=== PATIENT | male | born 1950 | race Caucasian/White ===

== ENCOUNTER → 2021-07-05 05:54 | Outpatient (CLI) | payer MEDICARE, OTHER, SELFPAY ==
[2021-07-05 19:19] LABS: SARS-CoV-2 RNA PCR Positive
== END ==
PROVIDERS: PCP Family Medicine; Visit Provider Nurse Practitioner Family
DX: U07.1 COVID-19 (principal)
CPT/HCPCS: C9803; U0003; U0005

== ENCOUNTER 2021-09-11 11:04 | Outpatient (CLI) | payer MEDICARE, OTHER, SELFPAY ==
[2021-09-11 12:00] LABS: Vitamin D 25 Hydroxy 23.6 ng/mL
[2021-09-16 17:02] LABS: Testosterone Free 42.6 pg/mL (35.0-155.0); Testosterone Total 179 ng/dL (250-1100)
== END 2021-09-11 11:05 | disposition home or self-care (01) ==
PROVIDERS: PCP Family Medicine; Visit Provider Physician Assistant Medical
DX: E55.9 Vitamin D deficiency, unspecified (principal); E11.29 Type 2 diabetes mellitus with other diabetic kidney complication; R80.9 Proteinuria, unspecified; R79.89 Other specified abnormal findings of blood chemistry
CPT/HCPCS: 36415; 82306; 84402; 84403; 84443

== ENCOUNTER 2022-01-28 14:54 | Outpatient (CLI) | payer MEDICARE, OTHER, SELFPAY ==
--- NOTE | 2022-01-28 | ECG_ITS ---
Measurements Intervals [place] Rate: 79 P: 35 MN: 157 QRS: 54 QRSD: 100 T: 74 QT: 381 QTc: 438 Interpretive Statements SINUS RHYTHM NONSPECIFIC T-WAVE ABNORMALITY BORDERLINE ECG NO PREVIOUS ECG AVAILABLE FOR COMPARISON Electronically Signed On 01-28-2022 16:58:46 CDT by Warren Flores M.D.
[2022-01-28 15:33] LABS: Hematocrit 46.6 % (42.0-52.0); Hemoglobin 14.9 g/dL (14.0-18.0); Mean Corpuscular Volume 87.4 fl (80-100); Mean Platelet Volume 9.2 fl (7.4-10.4); Platelet Count Result 235 k/mm3 (150-375); Red Blood Count 5.33 M/mm3 (4.6-6.20); Red Cell Distribution Width 14.5 % (11.5-14.5); White Blood Count 7.2 K/mm3 (4.5-10.0)
[2022-01-28 15:41] LABS: Alanine Aminotransferase 28 U/L (4-50); Albumin Level 4.5 g/dL (3.5-5.1); Alkaline Phosphatase 71 U/L (38-126); Anion Gap 10 mmol/L (8-16); Aspartate Amino Transferase 29 U/L (17-59); Bilirubin,Total 0.4 mg/dL (0.2-1.3); Blood Urea Nitrogen 20 mg/dL (9-20); Calcium 9.4 mg/dL (8.4-10.2); Carbon Dioxide 27 mmol/L (22-30); Chloride 101 mmol/L (98-107); Cholesterol 198 mg/dL (0-200); Estimated Glomerular Filt Rate > 60; Glucose 112 mg/dL (65-110); HDL Direct 46 mg/dL; Potassium 3.9 mmol/L (3.4-5.0); Sodium 138 mmol/L (137-145); Triglycerides 392 mg/dL (<150)
[2022-01-28 15:52] LABS: LDL Cholesterol Direct 88 mg/dL
[2022-01-28 16:05] LABS: Creatinine Urine 84.3 mg/dL
[2022-01-28 16:10] LABS: Prostate Specific Antigen 1.1 ng/mL (< OR = 4.0)
[2022-01-28 16:11] LABS: MALB Creatinine Ratio 179.8 mg/g (0-30); Microalbumin Urine Random 151.6 mg/L (0-16.7)
[2022-01-28 16:22] LABS: Vitamin D 25 Hydroxy 30.7 ng/mL
== END 2022-01-28 14:55 | disposition home or self-care (01) ==
PROVIDERS: PCP Family Medicine; Referring Provider Orthopaedic Surgery Hand Surgery; Visit Provider Physician Assistant Medical
DX: E78.5 Hyperlipidemia, unspecified (principal); M79.641 Pain in right hand; I10 Essential (primary) hypertension; E11.9 Type 2 diabetes mellitus without complications; E55.9 Vitamin D deficiency, unspecified; Z12.5 Encounter for screening for malignant neoplasm of prostate
CPT/HCPCS: 36415; 80053; 80061; 82043; 82306; 84153; 85027; 93005; G0103

== ENCOUNTER 2023-05-01 08:16 | Outpatient (CLI) | payer MEDICARE, OTHER, SELFPAY ==
[2023-05-01 09:22] LABS: Basophils Percent Auto 0.4 % (0.2-1.2); Eosinophils Absolute Auto 0.2 K/mm3 (0-0.3); Hematocrit 47.8 % (42.0-52.0); Hemoglobin 15.1 g/dL (14.0-18.0); Immature Granulocyte Absolute 0.03 K/mm3 (0.00-0.031); Immature Granulocyte Percent A 0.4 % (0-0.5); Lymphocytes Absolute Auto 1.63 K/mm3 (0.9-3.2); Lymphocytes Percent Auto 23.5 % (18.3-44.2); Mean Corpuscular HGB Conc 31.6 g/dl (32-36); Mean Corpuscular Hemoglobin 27.6 pg (26-34); Mean Corpuscular Volume 87.4 fl (80-100); Mean Platelet Volume 9.6 fl (7.4-10.4); Monocytes Absolute Auto 0.6 K/mm3 (0.1-0.6); Monocytes Percent Auto 8.5 % (2.6-8.5); Neutrophils Absolute Auto 4.4 K/mm3 (1.3-6.7); Neutrophils Percent Auto 64.2 % (45.5-73.1); Platelet Count Result 254 k/mm3 (150-375); Red Blood Count 5.47 M/mm3 (4.6-6.20); Red Cell Distribution Width 14.4 % (11.5-14.5); White Blood Count 6.9 K/mm3 (4.5-10.0)
[2023-05-01 09:31] LABS: Alanine Aminotransferase 36 U/L (6-50); Albumin Level 4.6 g/dL (3.5-5.1); Alkaline Phosphatase 60 U/L (38-126); Anion Gap 7 mmol/L (8-16); Aspartate Amino Transferase 36 U/L (17-59); Bilirubin,Total 0.4 mg/dL (0.2-1.3); Blood Urea Nitrogen 20 mg/dL (9-20); Calcium 9.6 mg/dL (8.4-10.2); Carbon Dioxide 31 mmol/L (22-30); Chloride 102 mmol/L (98-107); Cholesterol 147 mg/dL (0-200); Estimated Glomerular Filt Rate > 60; Glucose 128 mg/dL (65-110); HDL Direct 39 mg/dL; Potassium 4.5 mmol/L (3.4-5.0); Sodium 140 mmol/L (137-145); Triglycerides 219 mg/dL (<150)
[2023-05-01 09:42] LABS: LDL Cholesterol Direct 71 mg/dL
[2023-05-01 09:43] LABS: Creatinine Urine 77.2 mg/dL
[2023-05-01 09:47] LABS: MALB Creatinine Ratio 139.4 mg/g (0-30); Microalbumin Urine Random 107.6 mg/L (0-16.7)
[2023-05-01 10:01] LABS: Prostate Specific Antigen 1.2 ng/mL (< OR = 4.0)
== END 2023-05-01 08:17 | disposition home or self-care (01) ==
PROVIDERS: PCP Family Medicine; Visit Provider Physician Assistant Medical
DX: Z12.5 Encounter for screening for malignant neoplasm of prostate (principal); R80.9 Proteinuria, unspecified; I10 Essential (primary) hypertension; E78.5 Hyperlipidemia, unspecified; E11.29 Type 2 diabetes mellitus with other diabetic kidney complication
CPT/HCPCS: 36415; 80053; 80061; 82043; 84153; 85025; G0103

== ENCOUNTER 2024-01-27 10:03 | Outpatient (CLI) | payer MEDICARE, OTHER, SELFPAY ==
[2024-01-27 10:26] LABS: Hemoglobin 14.8 g/dL (14.0-18.0); Mean Corpuscular HGB Conc 32.2 g/dl (32-36); Mean Corpuscular Hemoglobin 27.9 pg (26-34); Mean Corpuscular Volume 86.6 fl (80-100); Mean Platelet Volume 9.1 fl (7.4-10.4); Platelet Count Result 223 k/mm3 (150-375); Red Blood Count 5.31 M/mm3 (4.6-6.20); Red Cell Distribution Width 14.4 % (11.5-14.5); White Blood Count 7.9 K/mm3 (4.5-10.0)
[2024-01-27 10:38] LABS: Alanine Aminotransferase 26 U/L (6-50); Albumin Level 4.3 g/dL (3.5-5.1); Alkaline Phosphatase 68 U/L (38-126); Anion Gap 9 mmol/L (4-12); Aspartate Amino Transferase 24 U/L (17-59); Bilirubin,Total 0.6 mg/dL (0.2-1.3); Blood Urea Nitrogen 25 mg/dL (9-20); Calcium 9.9 mg/dL (8.4-10.2); Carbon Dioxide 26 mmol/L (22-30); Chloride 102 mmol/L (98-107); Estimated Glomerular Filt Rate > 60; Glucose 147 mg/dL (65-110); Potassium 4.1 mmol/L (3.4-5.0); Sodium 137 mmol/L (137-145)
[2024-01-27 11:07] LABS: Creatinine Urine 77.1 mg/dL
[2024-01-27 11:10] LABS: Prostate Specific Antigen 1.3 ng/mL (< OR = 4.0)
[2024-01-27 11:11] LABS: MALB Creatinine Ratio 159.4 mg/g (0-30); Microalbumin Urine Random 122.9 mg/L (0-16.7)
== END 2024-01-27 10:04 | disposition home or self-care (01) ==
PROVIDERS: PCP Family Medicine; Visit Provider Nurse Practitioner Family
DX: Z12.5 Encounter for screening for malignant neoplasm of prostate (principal); R63.5 Abnormal weight gain; Z68.34 Body mass index [BMI] 34.0-34.9, adult; E11.9 Type 2 diabetes mellitus without complications; R79.89 Other specified abnormal findings of blood chemistry
CPT/HCPCS: 36415; 80053; 82043; 84153; 84443; 85027; G0103

== ENCOUNTER 2024-08-03 13:07 | Emergency (ER) | payer MEDICARE, OTHER, SELFPAY ==
[2024-08-03] VITALS (13 sets, daily range): BP systolic 114–147; BP diastolic 72–81; PULSE 65–128; RESP 12–32; TEMP 36.6; O2SAT 94–99
--- NOTE | ~2024-08-03 | XR_ITS ---
EXAMINATION: XR chest 2V DATE: 08/03/2024 14:04 INDICATION: Cardiac arrhythmia TECHNIQUE: PA and lateral views of the chest were obtained. COMPARISON: Chest radiograph dated 10/15/2015 FINDINGS: The lungs remain clear with no focal airspace opacities, pulmonary edema, pleural effusion or pneumot horax. Heart size is normal. Calcified left hilar lymph nodes consistent with old granulomatous disea se. Mild thoracic spondylosis with bridging osteophytes at multiple levels consistent with diffuse i diopathic skeletal hyperostosis (DISH). IMPRESSION: 1. No acute cardiopulmonary disease. Reviewed, dictated and finalized at location A.
--- NOTE | 2024-08-03 13:08 | ECG_ITS ---
Test Date: 2024-08-03 13:12:10 Measurements Intervals [place] Rate: 91 P: 48 ME: 152 QRS: 35 QRSD: 102 T: 103 QT: 351 QTc: 433 Interpretive Statements SINUS RHYTHM WITH OCCASIONAL SUPRAVENTRICULAR PREMATURE COMPLEXES IN A BIGEMINAL PATTERN POSSIBLE ANTERIOR MYOCARDIAL INFARCTION , OF INDETERMINATE AGE [30 ms Q WAVE IN V3/V4, OR R < 0.2 mV IN V4] No previous ECG available for comparison Electronically Signed On 08-03-2024 13:22:24 CDT by Stuart Rodrigues M.D.
[2024-08-03 13:31] LABS: Basophils Percent Auto 0.5 % (0.2-1.2); Eosinophils Absolute Auto 0.2 K/mm3 (0-0.3); Eosinophils Percent Auto 2.6 % (0-4.4); Hematocrit 47.7 % (42.0-52.0); Hemoglobin 15.7 g/dL (14.0-18.0); Immature Granulocyte Absolute 0.05 K/mm3 (0.00-0.031); Immature Granulocyte Percent A 0.7 % (0-0.5); Lymphocytes Absolute Auto 2.07 K/mm3 (0.9-3.2); Lymphocytes Percent Auto 28.4 % (18.3-44.2); Mean Corpuscular HGB Conc 32.9 g/dl (32-36); Mean Corpuscular Hemoglobin 28.9 pg (26-34); Mean Corpuscular Volume 87.7 fl (80-100); Mean Platelet Volume 9.2 fl (7.4-10.4); Monocytes Absolute Auto 0.6 K/mm3 (0.1-0.6); Monocytes Percent Auto 7.8 % (2.6-8.5); Neutrophils Absolute Auto 4.4 K/mm3 (1.3-6.7); Platelet Count Result 237 k/mm3 (150-375); Red Blood Count 5.44 M/mm3 (4.6-6.20); Red Cell Distribution Width 14.1 % (11.5-14.5); White Blood Count 7.3 K/mm3 (4.5-10.0)
[2024-08-03 13:37] LABS: Alanine Aminotransferase 31 U/L (6-50); Albumin Level 4.9 g/dL (3.5-5.1); Alkaline Phosphatase 71 U/L (38-126); Anion Gap 15 mmol/L (4-12); Aspartate Amino Transferase 30 U/L (17-59); Bilirubin,Total 0.5 mg/dL (0.2-1.3); Blood Urea Nitrogen 16 mg/dL (9-20); Calcium 9.6 mg/dL (8.4-10.2); Carbon Dioxide 24 mmol/L (22-30); Chloride 100 mmol/L (98-107); Estimated CRCL calculation 74 ml/min; Estimated Glomerular Filt Rate > 60; Glucose 119 mg/dL (65-110); Lipase 67 U/L (23-300); Potassium 3.9 mmol/L (3.4-5.0); Sodium 139 mmol/L (137-145)
[2024-08-03 13:41] LABS: Prothrombin Time 13.4 Seconds (11.1-14.7)
[2024-08-03 13:42] LABS: Partial Thromboplastin Time 35.7 Seconds (22.3-36.8)
[2024-08-03 13:49] LABS: Troponin I < 0.012 ng/mL (0.000-0.034)
--- NOTE | 2024-08-03 17:03 | ECG_ITS ---
Test Date: 2024-08-03 17:05:26 Measurements Intervals [place] Rate: 83 P: 35 AL: 167 QRS: 9 QRSD: 97 T: 81 QT: 363 QTc: 427 Interpretive Statements SINUS RHYTHM WITH SINUS ARRHYTHMIA POSSIBLE ANTERIOR MYOCARDIAL INFARCTION , PROBABLY OLD [30 ms Q WAVE IN V3/V4, OR R < 0.2 mV IN V4] INFERIOR MYOCARDIAL INFARCTION , PROBABLY OLD [40+ ms Q WAVE AND/OR ST/T ABNORMALITY IN II/aVF] ABNORMAL ECG Compared to ECG 08/03/2024 13:12:10 No significant changes Electronically Signed On 08-04-2024 13:48:07 CDT by Thanh Pringle M.D.
[2024-08-03 17:36] LABS: Troponin I < 0.012 ng/mL (0.000-0.034)
--- NOTE | 2024-08-03 17:37 | ED.GENADULT ---
HPI - General Adult General Chief complaint: Chest Pain Stated complaint: palpitations Time Seen by Provider: 08/03/24 16:47 History of Present Illness HPI narrative: This is a 73-year-old male presenting ED with chief complaint of palpitations. Started 1:00 a.m. last night he developed palpitations that were 2 beats 1 after another and then a pause. Patient has a history of PACs and PVCs below last 35 years. This is a similar episode. He is on metoprolol. He is not having any chest pain difficulty breathing abdominal pain lower extremity edema or syncope. He has appointment see his dado operator tomorrow at 2:30 a.m. Patient has had a Holter monitor in the past. Related Data Home Medications Medication Instructions Recorded Confirmed rosuvastatin 20 mg tablet (Crestor) 20 mg PO DAILY 06/02/23 05/19/24 Allergies Allergy/AdvReac Type Severity Reaction Status Date / Time No Known Allergies Allergy Verified 08/03/24 16:25 [facility] Past Medical History Medical History BMI 32.0-32.9,adult BMI 33.0-33.9,adult BMI 34.0-34.9,adult BMI 35.0-35.9,adult COVID-19 Surgical History Surgical History H/O colonoscopy History of thumb surgery Family History Family History Mother Carcinoma of colon Alcohol abuse Tobacco abuse Father Malignant neoplasm of prostate Acute myocardial infarction Heart disease Tobacco abuse Alcohol abuse Sibling Acute myocardial infarction Alcohol abuse Tobacco abuse Sibling Acute myocardial infarction Alcohol abuse Cerebrovascular accident Tobacco abuse Other Hypertension Social History Social History Smoking status: Never smoker Second hand tobacco smoke exposure: Yes Alcohol intake: never Substance use: former Substance use type: does not use and marijuana Lack of Transportation: No Lack of Food: Never True Current Housing: I Have Housing Concerned About Future Housing: No Difficulty Paying Gas/Electric Bills: No Difficulty Paying for Meds: No Currently Unemployed: No Education: Master's Degree or Higher Difficulty w/ Childcare or Family Care: No Living arrangements: with family Occupation/Education: retired 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 Head: atraumatic. EYES: EOMI, NOSE: Atraumatic NECK: Trachea midline RESPIRATORY: No increased rate of breathing clear to auscultation CARDIOVASCULAR: irregular, no peripheral edema ABDOMINAL: Non-distended, soft nontender no guarding rebound MUSCULOSKELETAl: No obvious deformities NEURO: Alert. Moving 4/4 extremities SKIN:: Warm, dry. Normal color PSYCHIATRIC: Normal affect Course Vital Signs Vital signs: Vital Signs Temperature 97.8 F 08/03/24 13:11 Pulse Rate 90 08/03/24 13:11 Respiratory Rate 16 08/03/24 13:11 Blood Pressure 147/81 H 08/03/24 13:11 Pulse Oximetry 99 08/03/24 13:11 Oxygen Delivery Room Air 08/03/24 13:11 Temperature 97.8 F 08/03/24 13:11 Pulse Rate 86 08/03/24 17:00 Respiratory Rate 16 08/03/24 16:24 Blood Pressure 131/80 08/03/24 16:24 Pulse Oximetry 96 08/03/24 16:24 Oxygen Delivery Room Air 08/03/24 13:11 Medical Decision Making MDM Narrative Medical decision making narrative: -Course: 73-year-old male with history of PACs presenting with palpitations. EKG showed PACs in a bigeminal pattern. No chest pain. No ischemic findings an EKG. Laboratory studies within normal limits. Troponin negative. Patient has follow-up with his dado operator tomorrow at 2:30 a.m.. Patient will be discharged. -DDX includes but is not limited
== END 2024-08-03 18:16 | disposition home or self-care (01) ==
PROVIDERS: Emergency Provider Emergency Medicine; PCP Family Medicine
DX: R00.8 Other abnormalities of heart beat (principal); Z79.85 Long-term (current) use of injectable non-insulin antidiabetic drugs; Z79.84 Long term (current) use of oral hypoglycemic drugs
CPT/HCPCS: 36415; 71046; 80053; 83690; 84484; 85025; 85610; 85730; 93005; 99284

== ENCOUNTER 2024-08-04 15:38 | Outpatient (CLI) | payer MEDICARE, OTHER, SELFPAY | END 2024-08-04 15:39 | disposition home or self-care (01) | LOC: ANHLAB 15:51 | PROVIDERS: PCP Family Medicine; Visit Provider Internal Medicine Cardiovascular Disease | DX: R00.2 Palpitations (principal) | CPT/HCPCS: 36415; 84481; 86376 ==

== ENCOUNTER 2024-09-08 15:15 | Outpatient (CLI) | payer MEDICARE, OTHER, SELFPAY ==
[2024-09-10 08:28] LABS: TSH QUEST 1.11 mIU/L (0.40-4.50)
== END 2024-09-08 15:16 | disposition home or self-care (01) ==
PROVIDERS: PCP Family Medicine; Visit Provider Internal Medicine Cardiovascular Disease
DX: R00.2 Palpitations (principal)
CPT/HCPCS: 36415; 84439; 84443; 84481; 86376

== ENCOUNTER 2024-11-09 07:52 | Outpatient (CLI) | payer MEDICARE, OTHER, SELFPAY ==
--- NOTE | ~2024-11-09 | MR_ITS ---
MR brain/brain stem wo/w con Ordering provider: DEDRA Warren History: 74 years Male with . H53.131 - Sudden visual loss, right eye . Comparison: CT head performed yesterday. Technique: MRI brain was performed without contrast. 20 mL MultiHance was given IV. FINDINGS: BONES: Normal. CRANIOCERVICAL JUNCTION: normal. PITUITARY: Normal. MAJOR INTRACRANIAL VESSELS: Normal flow void. Dominant right vertebral artery. OPTIC NERVES AND CRANIAL NERVES VII AND VIII COMPLEXES: Grossly normal. BRAIN PARENCHYMA AND CSF SPACES: Scattered T2 and FLAIR hyperintense signal areas suggestive of deep white matter ischemic changes. The brainstem and cerebellum are normal. No acute or chronic intr acranial hemorrhage. No extra axial fluid collections. Diffusion weighted and ADC mapping images reve al no recent ischemia. No midline shift or mass effect. No enhancing lesions seen. PARANASAL SINUSES: Right maxillary sinus disease. Bilateral ethmoid sinus disease. Right sphenoid sin us disease. MASTOIDS: Normal SUPERFICIAL/SURROUNDING SOFT TISSUES: Normal. IMPRESSION: 1. No acute intracranial process. 2. Scattered T2 and FLAIR hyperintense signal areas suggestive of the deep white matter ischemic dandy nges. 3. Pansinusitis. Reviewed, dictated and finalized at location A. 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 No acute intracranial process. 2. Scattered T2 and FLAIR hyperintense signal areas suggestive of the deep whi te matter ischemic changes. 3. Pansinusitis.
== END 2024-11-09 07:53 | disposition home or self-care (01) ==
PROVIDERS: PCP Family Medicine; Visit Provider Physician Assistant Medical
DX: R93.0 Abnormal findings on diagnostic imaging of skull and head, not elsewhere classified (principal); J32.4 Chronic pansinusitis; H53.131 Sudden visual loss, right eye
CPT/HCPCS: 70553; A9577

== ENCOUNTER 2025-07-18 09:34 | Outpatient (CLI) | payer MEDICARE, OTHER, SELFPAY ==
--- OUTSIDE RECORDS SUMMARY | 2018-04-07 07:24 | XMS_ITS | Continuity of Care Document ---
Author Organization [facility] Address [address] [place] [address] Phone Care Team Providers Care Vehicle Modification Technician Name Role Phone Delaney Mckeon MD Unavailable Unavailable Allergies, Adverse Reactions, Alerts Substance Reaction Status Criticality POTASSIUM CHLORIDE Drug Fever Active No Inform ation Medications Medication Instructions Dosage Effective Dates (start - stop) Status Comments metformin 500 mg tablet take 1 tablet by oral route once every day with morning meal - Active ONE TOUCH ULTRA TEST STRIPS CHECK GLUCOSE TWICE DAILY - FASTING AND 2 HOURS AFTER LARGEST MEAL AND NEEDED - Active One Touch Delica Lancets 33 gauge Use to test blood sugar 3-4 times/day - Active SIMVASTATIN 20 MG TABLET 1 QHS - Active aspirin 325 mg tablet take 1 tablet by oral route every day 325 MG - Active losartan 50 mg-hydrochlorothiazi de 12.5 mg tablet take 1 tablet by oral route every day 1.00 tablet - Active metoprolol tartrate 100 mg tablet take 1 tablet by oral route 2 times every day with meals 100 MG - Active Advance Directives Directive Yes / No Effective Date File Name No Information Encounters Encounter Description Practice Location Reason(s) For Visit Diagnoses Date Provider Providers Copied on Encounter [facility], [address], [place], [place], [address] , [place] tel: [phone] [place] No Information 8 Mike Baltazar. [address] [facility] [address], [place], [place], [address], [place]. tel:[phone] [facility], [address], [place], [place], [address] , [place] tel: [phone] [place] No Information Jan-0 9 8 Mike Baltazar. [address] [place] [address], [address], [place], [place], [address], [place]. tel:[phone] [facility], [address], [place], [place], [address] , [place] tel: [phone] [place] Type 2 diabetes mellitus without complicationsEss ential (primary) hypertensionHype rlipidemia, unspecifiedGastr oesophageal reflux disease without esophagitisMorbi d obesity, unspecified obesity typeMicroalbumin uriaBenign positional vertigo, unspecified lateralityHistor y of adenomatous polyp of colonAbsent kidney, acquired Jan- 6 7 Mike Baltazar. [address] [place] [address], [facility] [address], [place], [place], [address], . tel:[phone] Referring Provider: Delaney Mckeon, [address] [place] [address], [place], [address] . tel:[phone] [facility], [address], [place], [place], [address] , [place] tel: [phone] [place] Suprapubic pressureType 2 diabetes mellitus without complicationsChr onic low back pain, unspecified back pain laterality, with sciatica presence unspecified 2 0-201 6 Hobbs Karin. [address] [place] [address], [facility] [address], [place], [place], [address], [place]. tel:[phone] Referring Provider: Delaney Mckeon, [address] [place] [address] [address], [place], [address] . tel:[phone] [facility], [address], [place], [address] , [place] tel: [phone] [place] Hematuria Federico-0 8-201 6 Hobbs Karin. [address] [place] [address], [facility] [address], [place], [place], [address], . tel:[phone] Referring Provider: Delaney Mckeon, [address] [place] [address], [place], [address] . tel:[phone] [facility], [address], [place], [place], [address] , [place] tel:[phone] [place] Type 2 diabetes mellitus without complicationsEss ential (primary) hypertensionHype rlipidemia, unspecifiedGastr oesophageal reflux disease without esophagitisAdult general medical examUrinary frequencyMorbid obesity, unspecified obesity typeAcute prostatitis 6 Anjel Frazier. [facility], [facility] [address], [place], [place], [address], [place]. tel:[phone] Referring Provider: Delaney Mckeon, [address] [place] [address], [place], [address] . tel:[phone] [facility], [address], [place], [place], [address] , tel:[phone] [place] Other hyperlipidemiaEs sential (primary) hypertensionType 2 diabetes mellitus without complicationsEnc ounter for screening for malignant neoplasm of prostate 6 Mike Baltazar. [facility] [place], [place] [address], [place], [place], [address], [place]. tel:[phone] Referring Provider: Delaney Mckeon, [address] [place] [address], [place], [address] . tel:[phone] [facility], [address], [place], [place], [address] , tel:[phone] [place] No Information 4 Anjel Frazier. [facility], [facility] [address], [place], [address], [place]. tel:[phone] [facility], [address], [place], [address] , [place] tel:[phone] [place] Diabetes Mellitus Type 2, UncomplicatedHyp ertension, BenignOther and unspecified hyperlipidemia 3 Anjel Frazier. [facility], [facility] [address], [place], [place], [address], [place]. tel:[phone] Referring Provider: Delaney Mckeon, [address] [place] [address] [address], [place], [address] . tel:[phone] [facility], [address], [place], [place], [address] , tel: [phone] [place] Other and unspecified hyperlipidemiaDi abetes Mellitus Type 2, Uncomplicated Aug- 3 Mike Baltazar. [address] [place] [address], [facility] [address], [place], [address] [place] [address], . tel:[phone] Referring Provider: Delaney Mckeon, [address] [place] [address] [address], [place], [address] . tel:[phone] [facility], [address], [place], [place], [address] , tel: [phone] [place] No Information 3 Mike Baltazar. [address] [place] [address], [facility] [address], [place], [address] [place] [address], . tel:[phone] [facility], [address], [place], [place], [address] , tel: [phone] [place] Diabetes mellitus without mention of complication, type II or unspecified type, not stated as uncontrolled 3 Anjel Karin. [address] [place] [address], [facility] [address], [place], [place], [address], . tel:[phone] Referring Provider: Delaney Mckeon, [address] [place] [address], [place], [address] . tel:[phone] [facility], [address], [place], [address] , [place] tel: [phone] [place] No Information 3 Hobbs Karin. [address] [place] [address], [facility] [address], [place], [place], [address], . tel:[phone] [facility], [address], [place], [place], [address] , tel: [phone] [place] Diabetes mellitus without mention of complication, type II or unspecified type, not stated as uncontrolledBeni gn essential hypertensionDiab etes mellitus without mention of complication, type II or unspecified type, not stated as uncontrolledBeni gn essential hypertension 3 Jairon Cosme. [address] [place], [place] [address], [place], [place], [address]. tel:[phone] Referring Provider: Carmelina De La O, [address] [facility] 107, [place], [address] . tel:[phone] [facility], [address], [place], [address] , [place] tel: [phone] [place] Benign essential hypertensionOthe r and unspecified hyperlipidemiaSc reening for malignant neoplasms of the prostateDM w/o complication type II, uncontrolled 3 Anjel Frazier. [address] [place] [address], [facility] [address], [place], [place], [address], [place]. tel:[phone] Referring Provider: Delaney Mckeon, [address] [place] [address], [place], [address] . tel:[phone] [facility], [address], [place], [place], [address] , [place] tel: [phone] [place] SPECIAL SCREENING FOR MALIGNANT NEOPLASMS, OTHER SITES 3 Yanni Villagomez. [address] [place] [address], [address], [place], [address], [place]. tel:[phone] [facility], [address], [place], [address] , [place] tel: [phone] [place] No Information 2 Mayank Guallpa. [address] [place] [address], [address], [place], [place], [address], [place]. tel:[phone] [facility], [address], [place], [address] , [place] tel: [phone] [place] DMII WO CMP NT ST UNCNTRHYPERLIPID EMIA NEC/NOS 1 Mayank Guallpa. [address] [place] [address], [address], [place], [place], [address], [place]. tel:[phone] [facility], [address], [place], [place], [address] , [place] tel: [phone] [place] LUMBAGO Fe 1 Mike Baltazar. [address] [place] [address], [address], [place], [place], [address], [place]. tel:[phone] [facility], [address], [place], [place], [address] , [place] tel: [phone] [place] HYPERTENSION NOS 8201 0 Mayank Guallpa. [address] [place] [address], [address], [place], [place], [address], [place]. tel:[phone] [place] [address], [address], [place], [address] , [place] tel: [phone] [place] ABDMNAL PAIN UNSPCF SITE 0 Mayank Guallpa. [address] [place] [address], [place] [address], [place], [place], [address], [place]. tel:[phone] [place] [address], [address], [place], [place], [address] , [place] tel: [phone] [place] CHRONIC LIVER DIS NECANXIETY STATE NOS 0 Mayank Guallpa. [address] [place] [address], [place] [address], [place], [place], [address], [place]. tel:[phone] [place] [address], [address], [place], [place], [address] , [place] tel: [phone] [place] ABN LIVER FUNCTION STUDY 0 Mayank Guallpa. [address] [place] [address], [facility] [address], [place], [place], [address], [place]. tel:[phone] [place] [address], [address], [place], [place], [address] , [place] tel: [phone] [place] BENIGN HYPERTENSION 0 Yanni Soloriofer. [address] [place] [address], [facility] [address], [place], [place], [address], [place]. tel:[phone] [place] [address], [address], [place], [place], [address] , [place] tel:[phone] [place] SCRN MALIG NEOP-PROSTATE May-0 7-201 0 Mayank Guallpa. [address] [place] [address], [place] [address], [place], [place], [address], [place]. tel:[phone] [facility], [address], [place], [place], [address] , [place] tel: [phone] [place] OBESITY NOS 0 3200 9 Mayank Guallpa. [address] [place] [address], [facility] [address], [place], [place], [address], [place]. tel:[phone] [place] [address], [address], [place], [place], [address] , [place] tel: [phone] [place] DMII WO CMP UNCNTRLD 0 3200 9 No Information [facility], [address], [place], [place], [address] , [place] tel: [phone] [place] VACCIN FOR INFLUENZAND VAC STRPTCS PNEUMNI B 3 0200 9 Mayank Guallpa. [address] [place] [address], [place] [address], [place], [place], [address], [place]. tel:[phone] [facility], [address], [place], [place], [address] , [place] tel:[phone] [place] ALLERGIC RHINITIS NOS 3 0200 9 Mike Delaney. [address] [place] [address], [place] [address], [place], [place], [address], [place]. tel:[phone] [facility], [address], [place], [place], [address] , [place] tel:[phone] [place] CUTANEOUS CANDIDIASIS 2200 9 Foersterling Ken. [address] [place] [address], [place] [address], [place], [place], [address], [place]. tel:[phone] [facility], [address], [place], [place], [address] , [place] tel:[phone] [place] NONSPECIF SKIN ERUPT NECDIAPER OR NAPKIN RASHPALPITATIONS 0 5200 8 Mayank Guallpa. [address] [place] [address], [address], [place], [place], [address], [place]. tel:[phone] [facility], [address], [place], [place], [address] , [place] tel: [phone] [place] OTH SPECFD VIRAL WARTSINGROWING NAIL 6-200 8 Mayank Guallpa. [address] [place] [address], [place] [address], [place], [place], [address], [place]. tel:[phone] [place] [address], [address], [place], [place], [address] , [place] tel: [phone] [place] ACUTE SINUSITIS NOS Jan-2 2-200 8 Hobbs Karin. [address] [place] [address], [place] [address], [place], [place], [address], [place]. tel:[phone] [place] [address], [address], [place], [place], [address] , tel: [phone] [place] ABNORMAL GLUCOSE NECTESTICULAR HYPOFUNC NEC 7-200 7 Mayank Guallpa. [address] [place] [address], [place] [address], [place], [place], [address], [place]. tel:[phone] [place] [address], [address], [place], [place], [address] , [place] tel: [phone] [place] HEADACHEDIZZINES S AND GIDDINESS Aug-0 3-200 7 Mayank Guallpa. [address] [place] [address], [place] [address], [place], [place], [address], [place]. tel:[phone] [place] [address], [address], [place], [place], [address] , [place] tel:[phone] [place] IMPAIRED FASTING GLUCOSE 8-200 7 Mayank Guallpa. [address] [place] [address], [place] [address], [place], [place], [address], [place]. tel:[phone] [place] [address], [address], [place], [place], [address] , tel:[phone] [place] INSECT BITE NECEDEMA Jan-3 0-200 7 Mayank Guallpa. [address] [place] [address], [place] [address], [place], [place], [address], [place]. tel:[phone] [facility], [address], [place], [address] , [place] tel: [phone] [place] CELLULITIS OF LEG 7 Ronaldann Guallpa. [address], [address], [place], [place], [address], [place]. tel:[phone] [facility], [address], [place], [place], [address] , [place] tel: [phone] [place] No Information 6 Mike Baltazar. [address], [address], [place], [place], [address], [place]. tel:[phone] [facility], [address], [place], [place], [address] , [place] tel: [phone] [place] MALIG NEOPL STOMACH NOS 6 Mayank Ramu. [address], [address], [place], [place], [address], [place]. tel:[phone] Family History Family Member Type Diagnosis Age At Onset No Information Immunizations Vaccine Date Status Comments 88554 - Pneumococcal_PPV23 administered S ource: Source Unspecified 23748 - Influenza administered Source: [place] ur[place] Unspecified Payers Payer name Insurance type Covered constitution party ID Authoriza tion(s) [facility] [id number] Social History Type Description Quantity Date Captured Comments Sex Male Smoking Status No Information Chief Complaint And Reason For Visit No Information Reason For Referral Reason For Referral No Information History Of Present Illness Encounter Date Complaint History Of Prese nt Illness No Information Functional Status Date Functional Assessmen t No Information Instructions Date Instruction Additional Infor mation No Information Assessments Type Assessment Date No Information Patient Care Teams Name Effective Dates (start - stop) Status Members No Information
--- OUTSIDE RECORDS SUMMARY | 2024-04-17 16:30 | XMS_ITS ---
Author Organization [facility] [place] ([address]) Address [address] [place] [address] Care Team Providers Care Trapper Bird Name Role Phone Rome BURNS, Aldo Primary [...] Encounter Location Date Provider Diagnosis [facility] [address] [place] [id number] 04/17/2024 Provider Leeanne Chronic rhinitis J31.0 Assessments Encounter Date Diagnosis (ICD Code) Assessment Notes Treatment Notes Treatment Clinical Notes Section Notes 04/17/2024 Chronic rhinitis (ICD-10 - J31.0) Plan Of Treatment Medication Medication Name Sig Start Date Stop Date Notes Azelastine HCl 137 MCG/SPRAY 2 spray(s) intranasally 2 times a day; Duration: 30 day(s) Progress Notes * Andre PINONOB:1950 ([age] yo M)Acc No.[id number]:04/17/2024 Patient: Kosta TORRES Provider: Stephenie Magaña :1950 A ge:73 Y S ex:Male Date:04/17/2024 Address:[address] [place] [address], [facility] Pcp:Aldo Peter MD Subjective: * Chief Complaints: * 1 . [facility] To [facility] Conversion Encounter. * Medical History: * Medications: T aking Vitamin D3 125 MCG CAPSULE 1 CAP(S) ORALLY ONCE A DAY , Notes to Pharmacist: *Please review and pick correct strength-formulation from [facility] options. If intended option is not shown, [...] Electronic signature of Prov lisar JaneZ-Migration on 07/18/2025 at 10:27 AM CDT Sign off status: Pending * Provider: Stephenie Magaña Date: 04/17/2024 Generated for Jayleen goode/Aga/Carlos on: 07/18/2025 10:27 AM CDT
--- OUTSIDE RECORDS SUMMARY | 2025-07-18 10:27 | XMS_ITS | Encounter Summary ---
Author Organization [facility] Facility Care Team Providers Care Fighter Pilot Name Role Phone Aldo Peter MD Primary Care Provider [phone] Aldo Peter MD Primary Care Provider [phone] Tierney Borges MD Unavailable [phone] Naeem Lala MD Unavailable [phone] Encounter Details Date Type Department Care Team (Latest Contact Info) Description 06/02/2007 Orders Only [facility] ProviderGarrison MD [address] [place] [id number] Social History Tobacco Use Types Packs/Day Years Used Date Smoking Tobacco: Never Assessed Sex and Gender Information Value Date Recorded Sex Assigned at Not on file 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 us Historical Provider [facility]ON[facility] Final Result documented in this encounter Visit Diagnoses Not on filedocumented in this encounter Additional Health Concerns Infection Onset Date Last Indicated Resolved Time COVID: Suspected 01/21/2022 01/21/2022 01/21/2022 2:34 PM CDT documented as of this encounter Care Teams Fighter Pilot Relationship Specialty Start Date End Date Aldo Peter MD PCP - General Family Medicine 01/28/19 03/31/19 Aldo Peter MD PCP - General Family Medicine 04/01/19 Tierney Borges MD [address] [place] [address] 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
--- OUTSIDE RECORDS SUMMARY | 2025-07-18 10:27 | XMS_ITS | Patient Health Record ---
Author Organization [facility] ([id number]) Address [address] [place] [address] Care Team Providers Care Block Trimmer Name Role Phone Rome BURNS, Aldo Primary Care Provider Unavaila ble Allergies No Known Allergies Reason For Referral No Information Medications Medication SIG (Take, Route, Frequency, Duration) Notes Start Date End Date Status METFORMIN (EQV-GLUCOPHAGE XR) 500 mg ; Duration: 90 Active METOPROLOL SUCCINATE ER 100 mg ; Duration: 90 Active Omeprazole 40 MG ; Duration: 90 Active Metoprolol Succinate ER 100 MG ; Duration: 90 Active Azelastine HCl 137 MCG/SPRAY 2 spray(s) intranasally 2 times a day; Duration: 30 day(s) Active metFORMIN HCl ER 500 MG ; Duration: 90 Active Jardiance 25 MG ; Duration: 90 Active Cetirizine HCl 10 MG 1 tab(s) orally once a day 07/10/2022 Active VITAMIN D3 125 mcg 1 cap(s) orally once a day; Duration: 30 day(s) Active amLODIPine Besylate 5 MG 1 tab(s) orally once a day; Duration: 30 day(s) 07/10/2022 Active TRULICITY PEN 1.5 mg/0.5 mL ; Duration: 84 Active Trulicity 1.5 MG/0.5ML ; Duration: 84 Active AMLODIPINE 5 mg 1 tab(s) orally once a day; Duration: 30 day(s) 07/10/2022 Active Vitamin D3 125 MCG 1 CAP(S) ORALLY ONCE A DAY; Duration: 30 DAY(S) *Please review and pick correct strength-formulati on from Medispan options. If intended option is not shown, discontinue and re-order from Quick Search* Active CETIRIZINE 10 mg 1 tab(s) orally once a day 07/10/2022 Active OMEPRAZOLE 40 mg ; Duration: Active SIMVASTATIN 20 mg ; Duration: Active Simvastatin 20 MG ; Duration: Active JARDIANCE 25 mg ; Duration: Active AZELASTINE HYDROCHLORIDE NASAL 137 mcg/inh 2 spray(s) intranasally 2 times a day; Duration: 30 day(s) Active Social History Tobacco Use: Social History Observation Description Date Details (start date - stop date) Never Smoker NA - NA Smoking Smart Form: Question Answer Notes Are you a: never smoker Problems Problem Type SNOMED Code ICD Code Onset Dates Problem Status W/U Status Risk Notes Problem Vitamin D deficiency (16579500) Vitamin D deficiency, unspecified (E55.9) Active confirmed Problem Type I diabetes mellitus without complication (055650997) Type 1 diabetes mellitus without complications (E10.9) Active confirmed Problem Hyperlipidemia (84256779) Hyperlipidemia, unspecified (E78.5) Active confirmed Problem Allergic rhinitis caused by pollen (disorder) (26926584) Allergic rhinitis due to pollen (J30.1) Active confirmed Problem Chronic rhinitis (31482212) Chronic rhinitis (J31.0) Active confirmed Problem Allergic rhinitis caused by pollen (disorder) (39714289) Allergic rhinitis due to pollen (J30.1) Active confirmed Problem Essential hypertension (75147504) Essential (primary) hypertension (I10) Active confirmed Problem Chronic cough (68505791) Chronic cough (R05.3) Active confirmed Plan Of Treatment No Information Insurance Providers Payer Name Payer Address Payer Phone Subscriber Number Group Number Insured Name Patient Relationship to Insured Coverage Start Date Coverage End Date [employer] (Medicare) Attention Claims [address] [place] [address] [id number] Charles Pinony Self - patient is the insured [employer] [address] [place] [address] [phone] [id number] Kosta Pinon Self - patient is the insured Medical (General) History Medical History History ICD Code Essential (primary) hypertension I10 Hyperlipidemia, unspecified E78.5 Vitamin D deficiency, unspecified E55.9 Type 2 Diabetes Surgical History Surgery Date(Month/Year) 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
--- OUTSIDE RECORDS SUMMARY | 2025-07-18 10:27 | XMS_ITS | Clinical Summary ---
Author Organization [facility] Address [address] [place] [phone] Phone Care Team Providers Care Legal Researcher Name Role Phone Aldo Peter MD Primary Care Provider [phone] Allergies Active Allergy Reactions Criticality Noted Date Comments Potassium Chloride Palpitations High 06/11/2010 Medications omeprazole (PriLOSEC) [address] capsule 1 qday 0 11/14/2018 Active aspirin (ST CARA) 81 MG EC tablet 1 qday 0 11/14/2018 Active simvastatin (ZOCOR) 20 MG tablet 1 qday 0 11/14/2018 Active metoprolol succinate XL (TOPROL-XL) 100 MG 24 hr tablet 1 bid 0 11/14/2018 Act christiano Empagliflozin (JARDIANCE) 10 MG tablet 1 qday 0 11/14/2018 Active metFORMIN (GLUCOPHAGE) 1000 MG tablet 1 bid 0 11/14/2018 Acti ve cetirizine (ZyrTEC) 10 MG tablet daily 06/14/2019 Active lisinopril-hydro CHLOROthiazide (PRINZIDE,ZESTOR ETIC) 10-12.5 MG per tablet TK 1 T PO D 0 07/23/2019 Active Active Problems Problem Noted Date Diagnosed Date Hyperglycemia 07/23/2019 Gastro-esophageal reflux disease without esophag itis 11/15/2018 Other proteinuria 11/14/2018 Type 2 diabetes mellitus wit h other diabetic kidney complication 11/14/2018 Hypertensive chronic kidney disease with stage 1 through stage 4 chronic kidney disease, or unspecified chronic kidney disease 11/14/2018 Mixed hyperlipidemia 11/14/2018 Hypertensive disorder 08/07/2016 Palpitations 08/07/2016 Adenoma of duodenum 08/22/2014 Polyp of colon 08/22/2014 Immunizations Immunization Administration Dates Next Due Pneumococcal Conjugate 08/04/2018 Family History Medical History Relation Comments Malignant neoplastic disease Father Malignant neoplastic disease Mother Kidney disease Neg Hx Kidney stone Neg Hx Relation Status Comments Father Mother Social History Tobacco Use Types Packs/Day Years Used Date Smoking Tobacco: Never Smokeless Tobacco: Never Alcohol Use Standard Drinks/Week Comments No 0 (1 standard drink = 0.6 oz pur e alcohol) Sex and Gender Information Value Date Recorded Sex Assigned at Not on file Legal Sex Male 9:48 AM MST Gender Identity Not on file Sexual Orientation Not on file Last Filed Vital Signs Vital Sign Reading Time Taken Comments Blood Pressure 134/80 08/23/2019 1:42 PM CDT Pulse - - Temperature 36.8 C (98.2 F) 08/23/2019 1:42 PM CDT Respiratory Rate - - Oxygen Saturation - - Inhaled Oxygen Concentration - - Weight 112 kg (247 lb) 08/23/2019 1:42 PM CDT Height 180.3 cm (5' 11) 08/23/2019 1:42 PM CDT Body Mass Index 34.45 08/23/2019 1:42 PM CDT Plan of Treatment Health Maintenance Due Date Last Done Comments Pneumococcal PPSV23/PCV13 65 + Years / Low and Medium Risk (1 of 2 - PCV) 2002 Influenza Vaccine (#1) 2025 Insurance MEDICARE [facility] Care Teams Legal Researcher Relationship Specialty Start Date End Date Aldo Peter MD [address] [place] [address] PCP - General Family Medicine 02/24/19
--- OUTSIDE RECORDS SUMMARY | 2025-07-18 10:27 | XMS_ITS | Clinical Summary ---
Author Organization [facility] 2 Address [address] [facility] [place] [address] Care Team Providers Care Farmworker Machine Name Role Phone Aldo Peter MD Primary Care Provider [phone] Tierney Borges MD Unavailable [phone] Naeem Lala MD Unavailable [phone] Allergies Active Allergy Reactions Criticality Noted Date Comments Potassium Chloride In 0.9%Nacl Palpitations High 07/2010 Medications cetirizine (ZyrTEC) 10 mg tablet Take 1 tablet (10 mg total) by mouth as needed for allergies 9 Active fluticasone propionate (FLONASE) 50 mcg/actuation nasal spray Administer 1 spray into each nostril as needed Active Jardiance 25 mg tablet daily 1 Active nystatin-triamc inolone cream nightly as needed 1 Active freestyle 28 gauge lancets 2 Active aspirin 81 mg enteric coated tablet Take 1 tablet (81 mg total) by mouth daily 30 tablet 11 3 Active blood-glucose sensor device Use for BG monitoring 2 each 3 Active azelastine (ASTELIN) 137 mcg (0.1 %) nasal spray every 12 hours Act christiano cholecalciferol (VITAMIN D-3) 5,000 unit capsule daily Active tiZANidine (ZANAFLEX) 2 mg tablet Take 1 tablet (2 mg total) by mouth 3 Active omeprazole (PriLOSEC) 40 mg capsule 3 Active amLODIPine (NORVASC) 5 mg tablet Take 1 tablet (5 mg total) by mouth daily 90 tablet 2 3 Active lisinopriL (PRINIVIL,ZESTR IL) 5 mg tablet Be careful if taking OTCs.Take or use exactly as directed.Do not take if . 4 Active metoprolol XL (TOPROL-XL) 100 mg 24 hr tablet Take 1 tablet (100 mg total) by mouth 2 (two) times a day 4 Active Mounjaro 10 mg/0.5 mL pen injector 4 Active rosuvastatin (CRESTOR) 40 mg tablet Take 1 tablet (40 mg total) by mouth nightly 90 tablet 3 4 Active polyethylene glycol (GoLYTELY) 236-22.74-6.74 -5.86 gram solution See instructions sent to pt 4000 mL 5 Active Additional Information Patient not taking.Reported on 03/30/2025 amoxicillin-cla vulanate (AUGMENTIN) 875-125 mg per tablet Take 1 tablet by mouth every 12 (twelve) hours for 10 days 5 Active cefuroxime (CEFTIN) 500 mg tablet Take 1 tablet (500 mg total) by mouth every 12 (twelve) hours 5 Active levoFLOXacin (LEVAQUIN) 500 mg tablet TAKE 1 TABLET BY MOUTH DAILY FOR 7 DAYS 5 Active Active Problems Problem Noted Date Diagnosed Date Carpal tunnel syndrome on right 03/15/2025 Ganglion cyst 03/10/2025 Pain in both hands 02/14/2025 Left carpal tunnel syndrome 02/14/2025 Right carpal tunnel syndrome 02/14/2025 Pain of finger of right hand 02/14/2025 Superficial foreign body of right hand without major open wound 02/14/2025 History of colonic polyps 01/20/2025 Painful respiration 06/16/2024 Allergic rhinitis due to pollen 06/16/2024 Painful respiration 06/16/2024 Ventricular premature depolarization 09/17/2023 Type 2 diabetes mellitus wit h hyperglycemia, without long-term current use of insulin 09/16/2023 Assessment & Plan (07/29/2024 2:41 PM CDT): Chronic problem. A1c at goal/stable at 7.0%. Current medications: Jardiance 25mg daily Mounjaro 10 mg weekly Will update labs. Verified that he uses mychart. Aware to check results/results letter in mychart. Will contact by phone if needed. DM eye exam [address] Lala in [facility]. Letter sent to get copy of results. Strive for regular exercise (30min most days) and diet (get at least 4-5 servings of fruit and veggies daily, avoid processed foods, increase lean protein intake and decrease carb portions as well as fruit juices, regular soda & desserts). Watch carbs and simple sugars. Check the blood sugar freestyle murray. Check the feet daily for skin breakdown and infection. Assessment & Plan (09/16/2023 11:31 AM ROOFER): Chronic problem. A1c at goal/stable at 6.8%. Current medications: Jardiance 25mg daily Mounjaro 5mg weekly MA/Cr updated today. Verified that he uses mychart. Aware to check results/results letter in mychart. Will contact by phone if needed. DM eye exam [address] Lala in [facility]. Letter sent to get copy of results. Strive for regular exercise (30min most days) and diet (get at least 4-5 servings of fruit and veggies daily, avoid processed foods, increase lean protein intake and decrease carb portions as well as fruit juices, regular soda & desserts). Watch carbs and simple sugars. Check the blood sugar freestyle murray. Check the feet daily for skin breakdown and infection. Hypertension associated with type 2 diabetes rachel litus 09/16/2023 Assessment & Plan (07/29/2024 2:05 PM CDT): Chronic problem. Controlled on current metoprolol XL 200mg daily, amlodipine 5mg daily Will update labs. Verified that he uses mychart. Aware to check results/results letter in mychart. Will contact by phone if needed. Assessment & Plan (09/16/2023 11:09 AM ROOFER): Chronic problem. Controlled on current Metoprolol XL 100mg daily, diltiazem CD 120mg daily. Hyperlipidemia associated with type 2 diabetes tyler olivia 09/16/2023 Assessment & Plan (07/29/2024 2:05 PM CDT): Chronic problem. Not at goal when checked 03/2023 Currently taking Rosuvastatin 20mg. Last lipid panel: 03/05/23 WLB=812, HQ=450. Will update labs. Verified that he uses [employer]. Aware to check results/results letter in [employer]. Will contact by phone if needed. Assessment & Plan (09/16/2023 11:10 AM ROOFER): Chronic problem. Not at goal when checked 03/2023 Currently taking Rosuvastatin 20mg. Last lipid panel: 03/05/23 WZS=455, EK=756. History of colon polyps 04/04/2021 Overview (04/04/2021): Added automatically from request for surgery [id number] Hyperglycemia 07/23/2019 Assessment & Plan (03/17/2023 12:38 PM CDT): Patient has diabetes on Jardiance hemoglobin A1c 7.4 patient to follow diabetic diet Hypertensive chronic kidney disease with stage 1 through stage 4 chronic kidney disease, or unspecified chronic kidney disease 11/14/2018 Other proteinuria 11/14/2018 Type 2 diabetes mellitus wit h other diabetic kidney complication 11/14/2018 Assessment & Plan (05/27/2023 4:11 PM CDT): Hba1c was Lab Results Component Value Date HGBA1C 6.9 05/27/2023 today, indicating adequate DM control Goal Hba1c and blood glucose explained Diet and exercise were advised Prevention and treatment of hyypoglcyemia were discussed with the patient Blood glucose monitoring : start CGM with [facility] ( pt is interested ) Adjustment to medications: Will try to switch from Trulicity to Mounjaro, which can help better with weight loss and lowering hba1c I also advised the patient on trying low dose Metformin , 500 mg once a day with dinner. HTN (hypertension) 08/07/2016 Assessment & Plan (03/17/2023 12:37 PM CDT): History of hypertension on amlodipine tolerating well no side effects no ankle edema blood pressure under good control advised to continue same medication salt restricted diet and watch calories Heart palpitations 08/07/2016 Assessment & Plan (03/17/2023 12:36 PM CDT): History of palpitation VPCs which patient has settled down no tachyarrhythmia patient on small amount of beta luisa tolerating well plan to continue same and watch any symptoms Hypercholesterolemia 08/07/2016 Assessment & Plan (03/17/2023 12:37 PM CDT): Abnormal lipids patient on Crestor 20 mg tolerating well lipids are in good range patient is following the diet low-cholesterol continue same Testicular hypofunction 08/07/2016 Polyp of colon 08/22/2014 Gastroesophageal reflux disease 08/22/2014 Adenoma of duodenum 08/22/2014 Abdominal pain, acute 06/11/2010 Resolved Problems Problem Noted Date Diagnosed Date Resolved Date Chest pain 04/10/2018 07/23/2019 Esophagitis, unspecified 07/09/2016 Surgical History Surgery Date Site/Laterality Comments UPPER GASTROINTESTINAL ENDOSCOPY COLONOSCOPY Medical History Medical History Date Comments HTN (hypertension) Palpitations diagnosed as PAC /PVC's that are benign Hypercholesterolemia Chest pain GERD (gastroesophageal reflux disease) Type 2 diabetes mellitus Social History Tobacco Use Types Packs/Day Years Used Date Smoking Tobacco: Never Smokeless Tobacco: Never Alcohol Use Standard Drinks/Week Comments Never 0 (1 standard drink = 0.6 oz pur e alcohol) AUDIT-C Answer Date Recorded Q1: How often do you have a drink containing alcohol? Never 03/16/2025 Q2: How many drinks containi ng alcohol do you have on a typical day when you are drinking? Patient does not drink Q3: How often do you have si x or more drinks on one occasion? Never 03/16/2025 Personal Safety Answer Date Recorded Have you ever been in or are you currently in a harmful physical or emotional relationship or is someone making you feel afraid or unsafe? Denies 03/16/2025 Sex and Gender Information Value Date Recorded Sex Assigned at Not on file Legal Sex Male 8:54 PM ROOFER Gender Identity Not on file Sexual Orientation Not on file Obstetrics History Last Filed Vital Signs Vital Sign Reading Time Taken Comments Blood Pressure 122/70 03/30/2025 11:40 AM CDT Pulse 78 03/30/2025 11:40 AM CDT Temperature 36.1 C (96.9 F) 03/11/2022 12:18 PM CDT Respiratory Rate 18 03/30/2025 11:40 AM CDT Oxygen Saturation 96% 03/30/2025 11:40 AM CDT Inhaled Oxygen Concentration - - Weight 107 kg (236 lb) 03/30/2025 11:40 AM CDT Height 177.8 cm (5' 10) 03/30/2025 11:40 AM CDT Body Mass Index 33.86 03/30/2025 11:40 AM CDT Plan of Treatment Health Maintenance Due Date Last Done Comments Depression Screening 1950 Hepatitis C Screening 1950 Dilated Eye Exam 1950 DTaP/Tdap/Td Vaccine (1 - Tdap) 1963 Hepatitis B Screening 1970 Zoster Vaccine (1 of 2) 2002 Well Visit 65+ 2017 Pneumococcal vaccine 65+ (2 of 2 - PPSV23, PCV20, or PCV21) 09/29/2018 08/04/2018 Fall Risk Assessment 02/06/2023 02/06/2022 eGFR 05/01/2024 05/01/2023 Albumin Creatinine Ratio, Urine 09/16/2024 Foot Exam 09/16/2024 09/16/2023 Hemoglobin A1C 01/26/2025 07/29/2024, 09/03, 05/27/2023 Influenza Vaccine (#1) 2025 Lipid Panel 08/04/2025 08/04/2024, 03/05/2023 Colon Cancer Screening-Colonoscopy 02/07/20322021, 07/01/2016 Colon Cancer Screening-CT Colonography Discontinued 02/06/2022, 07/01/2016 Colon Cancer Screening-DNA Stool Discontinued 02/07/20 22, 07/01/2016 Colon Cancer Screening-FIT Discontinued 02/06/2022, Colon Cancer Screening-Sigmoidoscopy Discontinued 04/2022, 07/01/2016 Procedures Procedure Name Priority Date/Time Associated Diagnosis Comments POCT LIPID PANEL Routine 08/04/2024 2:54 PM CDT Hypercholesterolem ia POCT HEMOGLOBIN A1C Routine 07/29/2024 2 :08 PM CDT Type 2 diabetes mellitus with hyperglycemia, without long-term current use of insulin (HCC) ALBUMIN CREATININE RATIO, URINE Routine 09/16/2023 11:47 AM ROOFER Type 2 diabetes mellitus with hyperglycemia, without long-term current use of insulin (HCC) COMPREHENSIVE METABOLIC PANEL Routine 05/01/2023 9:16 AM CDT COLONOSCOPY 02/06/2022 9:27 AM CDT from Last 3 Months or Most Recently Relevant to Health Maintenance Results * POCT lipid panel (08/04/2024 2:54 PM CDT) Cholesterol, POC 187 mg/dL HDL, POC 34 mg/dL Triglycerides, POC 298 mg/dL LDL Cholesterol POC 94 mg/dL Chol/HDL Ratio, POC 2.8 Non-HDL Cholesterol, POC 154 mg/dL Cholesterol Total, POC 187 mg/dL Capillary blood 08/04/2024 2 :54 PM CDT Erwin Goldberg MD POINT OF CARE TEST ORDERABLES Fi nal Result * (ABNORMAL) POCT hemoglobin A1c (07/29/2024 2:08 PM CDT) Hemoglobin A1C, POC 7.0 4.0 - 5.6 % Blood 07/29/2024 2:08 PM CDT Emani Baumann NP POINT OF CARE TEST ORDERA BLES Final Result * (ABNORMAL) Albumin Creatinine Ratio, Urine (09/16/2023 11:47 AM ROOFER) Albumin Ur 156.2 mg/L [facility] Comment: Interpretive Data No reference range established. Current interpretive data was last revised 2019. Creatinine Ur 109.9 mg/dL [facility] Comment: Interpretive Data No reference range established. Current interpretive data was last revised 2019. Albumin Creatinine Ratio, Ur 142(H) 1 - 29 mg/g [facility] Urine 09/16/2023 11:4 7 AM ROOFER 09/17/2023 9:32 AM ROOFER us Emani Baumann NP LAB URINE ORDERABLES Maryuri swartz Result [facility] [id number] Department [place] [address] * (ABNORMAL) Comprehensive metabolic panel (05/01/2023 9:16 AM CDT) Pathologist [facility] SCRIBED Sodium 140 137 - 145 mmol/L EXTERNAL LAB SCRIBED Potassium 4.5 3.4 - 5.0 mmol/L EXTERNAL LAB SCRIBED Chloride 102 98 - 107 mmol/L EXTERNAL LAB SCRIBED Carbon Dioxide 31(A) 22 - 30 mmol/L EXTERNAL LAB SCRIBED Anion Gap 7(A) 8 - 16 mmol/L EXTERNAL LAB SCRIBED Urea Nitrogen (BUN) 20 9 - 20 mg/dl EXTERNAL LAB SCRIBED Creatinine 1.20 0.7 - 1.3 mg/dl EXTERNAL LAB SCRIBED Glucose 128(A) 65 - 110 mg/dl EXTERNAL LAB SCRIBED Calcium 9.6 8.4 - 10.2 mg/dl EXTERNAL LAB SCRIBED Bilirubin 0.4 0.2 - 1.3 mg/dl EXTERNAL LAB SCRIBED Plasma Protein 8.0 6.3 - 8.2 g/dl EXTERNAL LAB SCRIBED Albumin 4.6 3.5 - 5.1 g/dl EXTERNAL LAB SCRIBED Alanine Transaminase (ALT) 36 6 - 50 Units/L EXTERNAL LAB SCRIBED Aspartate Transaminase (AST) 36 17 - 59 Units/L EXTERNAL LAB SCRIBED eGFR >60 >=60 EXTERNAL LAB SCRIBED eGFR >60 >=60 EXTERNAL LAB Blood us Historical Provider LAB BLOOD ORDERABLES Edit ed Result - Final EXTERNAL LAB * COLONOSCOPY (02/06/2022 9:27 AM CDT) Anatomical Region Laterality Modality Other Narrative Procedure Note Luis Enrique Sierra MD - 02/06/2022 9:27 AM CDT GI ENDOSCOPY [facility] Patient Name: Kosta Pinon Procedure Date: 02/06/2022 9:27 AM Date of : 1950 Admit Type: Outpatient Age: 71 Gender: Male Attending MD: Luis Enrique Dillard M.D. Room: [facility] ENDOSCOPY ROOM 9 Note Status: Finalized Procedure: Colonoscopy Indications: High risk colon cancer surveillance: Personalhistory of colonic polyps Referring MD: Aldo Peter M.D. Providers: Luis Enrique Dillard M.D. Medicines: Monitored Anesthesia Care Complications: No immediate complications. Estimated Blood Loss: Estimated blood loss was minimal. Procedure: Pre-Anesthesia Assessment: - The risks and benefits of the procedure and the sedation options and risks were discussed with the patient. All questions were answered and informed consent was obtained. - Immediately prior to administration ofmedications, the patient was re-assessed for adequacy to receive sedatives. The benefits, risks and alternatives of theprocedure and sedation were discussed and informed consentwas obtained. All questions were answered. Please referto the signed informed consent document in the medical record. The scope was passed under direct vision.The [id number] endoscope was introduced through the anus and advanced to the cecum, identified by appendiceal orifice and ileocecal valve. The colonoscopy was performed without difficulty. The patient tolerated the procedure well. The qualityof the bowel preparation was good. The bowelpreparation used was polyethylene glycol (PEG). The quality ofthe bowel preparation was evaluated using the BBPS(Limestone Bowel Preparation Scale) with scores of: RightColon = 3 (entire mucosa seen well with no residualstaining, small fragments of stool or opaque liquid),Transverse Colon = 3 (entire mucosa seen well with no residual staining, small fragments of stool or opaqueliquid) and Left Colon = 3 (entire mucosa seen well with no residual staining, small fragments of stool oropaque liquid). The total BBPS score equals 9. Findings: Hemorrhoids were found on perianal exam. Six sessile polyps were found in the descending colon, transversecolon and ascending colon. The polyps were 4 to 7 mm in size. These polyps were removed with a cold snare. Resection and retrieval werecomplete. A 1 mm polyp was found in the appendiceal orifice. The polyp was sessile. The polyp was removed with a cold biopsy forceps. Resectionand retrieval were complete. The exam was otherwise without abnormality on direct and retroflexion views. Impression: - Hemorrhoids found on perianal exam. - Six 4 to 7 mm polyps in the descending colon, inthe transverse colon and in the ascending colon,removed with a cold snare. Resected and retrieved. - One 1 mm polyp at the appendiceal orifice,removed with a cold biopsy forceps. Resected andretrieved. - The examination was otherwise normal on directand retroflexion views. Recommendation: - A polyp or polyps were removed during your colonoscopy today. After the pathology result ofthe polyp(s) is reviewed, the doctor who performed your colonoscopy will recommend follow-up colonoscopy to you based on current guidelines by gastroenterology societies: > If only small hyperplastic polyps from the rectumor sigmoid were removed, repeat the colonoscopy in 10 years. > If 1 or 2 polyps less than 1 cm in size are adenomas, repeat the colonoscopy in 5 years. > If 3 or more polyps are adenomas, repeat the colonoscopy in 3 years. > If there are 10 or more adenomas, repeat the colonoscopy in 1 year. > If any polyp is 10 mm or greater in size, has villous histology or high grade dysplasia, repeatthe colonoscopy in 3 years. > If a polyp greater than 2 cm was removed with a piecemeal technique, repeat the colonoscopy in 6 months to be certain that there is no residualpolyp. > Sessile serrated polyps are treated like adenomas for surveillance purposes. - Return to referring provider as indicated. - In the unusual situation that you developabdominal pain, bleeding or other significant problems in the days following this procedure please call my office [phone]). After hours and eveningsplease call [phone] and speak to the GI fellow huseyin. Please tell the fellow that Dr. Dillard did your procedure and that you were instructed to have the fellow call me or the physician covering for me to discuss the management of your condition. If youhave an urgent problem, please go to the nearestemergency room and have the ER doctor call my office duringthe day or the GI fellow after hours and weekends to arrange admission or transfer to our facility.Please bring this report with you if you go to theemergency room. Attending Participation: I personally performed the entire procedure. Electronically signed by Luis Enrique Dillard MD Luis Enrique Dillard M.D. 02/06/2022 10:11:32 AM . Number of Addenda: 0 Note Initiated On: 02/06/2022 9:27 AM Recognized by the [place] [employer] for promoting quality in endoscopy Luis Enrique Dillard MD ENDOSCOPY PROCEDURES Final Result from Last 3 Months or Most Recently Relevant to Health Maintenance Insurance MEDICARE [email or web address] MEDICARE FOR LIFE MEDICARE FOR LIFE Advance Directives For more information, please contact: [phone] * Full Code (Latest Code Status on File) Date Activated Date Inactivated Comments 02/06/2022 8:31 AM 02/06/2022 3:08 PM Care Teams Farmworker Machine Relationship Specialty Start Date End Date Aldo Peter MD PCP - General Family Medicine 04/01/19 Tierney Borges MD [address] [facility] [address] [place] Man Cardiovascular Disease 07/21/19 Naeem Lala MD [address] [place] [address] Referring Physician Ophthalmology 05/27/23
--- OUTSIDE RECORDS SUMMARY | 2025-07-18 10:27 | XMS_ITS | Encounter Summary ---
Author Organization [facility] Facility Care Team Providers Care Malt House Kiln Operator Name Role Phone Aldo Peter MD Primary Care Provider + [phone] Aldo Peter MD Primary Care Provider [phone] Tierney Borges MD Unavailable [phone] Naeem Lala MD Unavailable [phone] Encounter Details Date Type Department Care Team (Latest Contact Info) Description 03/20/2011 Orders Only [facility] CLINCONV ProviderGarrison MD [address] [place] [id number] Social History Tobacco Use Types Packs/Day Years Used Date Smoking Tobacco: Never Assessed Sex and Gender Information Value Date Recorded Sex Assigned at Not on file Legal Sex Male 8:54 PM 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
--- OUTSIDE RECORDS SUMMARY | 2025-07-18 10:28 | XMS_ITS | Encounter Summary ---
Author Organization [facility] Facility Care Team Providers Care Sound Ranging Crewmember Name Role Phone Aldo Peter MD Primary Care Provider + [phone] Aldo Peter MD Primary Care Provider + [phone] Tierney Borges MD Unavailable [phone] Naeem Lala MD Unavailable [phone] Encounter Details Date Type Department Care Team (Latest Contact Info) Description 05/13/2017 Orders Only [facility] CLINCONV Provider, MD Garrison [address] [place] [id number] Social History Tobacco Use Types Packs/Day Years Used Date Smoking Tobacco: Never Assessed Sex and Gender Information Value Date Recorded Sex Assigned at Not on file Legal Sex Male 8:54 PM HEAD OF 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 us Historical Provider Final Res ult documented in this encounter Visit Diagnoses Not on filedocumented in this encounter Additional Health Concerns Infection Onset Date Last Indicated Resolved Time COVID: Suspected 01/21/2022 01/21/2022 01/21/2022 2:34 PM CDT documented as of this encounter Care Teams Sound Ranging Crewmember Relationship Specialty Start Date End Date Aldo Peter MD PCP - General Family Medicine 01/28/19 03/31/19 Aldo Peter MD PCP - General Family Medicine 04/01/19 Tierney Borges MD [address] [place] [address] Elevator Adjuster Cardiovascular Disease 07/21/19 Naeem Lala MD [address] [place] [address] Referring Physician Ophthalmology 05/27/23 documented as of this encounter
--- OUTSIDE RECORDS SUMMARY | 2025-07-18 10:28 | XMS_ITS | Encounter Summary ---
Author Organization [facility] Facility Care Team Providers Care Head Swamper Name Role Phone Aldo Peter MD Primary Care Provider + [phone] Aldo Peter MD Primary Care Provider + [phone] Tierney Borges MD Unavailable [phone] Naeem Lala MD Unavailable [phone] Encounter Details Date Type Department Care Team (Latest Contact Info) Description 03/06/2017 Orders Only [facility] CLINCONV ProviderGarrison MD [address] [place] [id number] Social History Tobacco Use Types Packs/Day Years Used Date Smoking Tobacco: Never Assessed Sex and Gender Information Value Date Recorded Sex Assigned at Not on file Legal Sex Male 8:54 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 us Historical Provider [facility] Final Result documented in this encounter Visit Diagnoses Not on filedocumented in this encounter Additional Health Concerns Infection Onset Date Last Indicated Resolved Time COVID: Suspected 01/21/2022 01/21/2022 01/21/2022 2:34 PM CDT documented as of this encounter Care Teams Head Swamper Relationship Specialty Start Date End Date Aldo Peter MD PCP - General Family Medicine 01/28/19 03/31/19 Aldo Peter MD PCP - General Family Medicine 04/01/19 Tierney Borges MD [address] [place] [address] Mooner Cardiovascular Disease 07/21/19 Naeem Lala MD [address] [place] [address] Referring Physician Ophthalmology 05/27/23 documented as of this encounter
--- OUTSIDE RECORDS SUMMARY | 2025-07-18 10:28 | XMS_ITS | Encounter Summary ---
Author Organization [facility] Facility Care Team Providers Care Visiting Professor Name Role Phone Aldo Peter MD Primary Care Provider + [phone] Aldo Peter MD Primary Care Provider + [phone] Tierney Borges MD Unavailable [phone] Naeem Lala MD Unavailable [phone] Encounter Details Date Type Department Care Team (Latest Contact Info) Description 03/10/2013 Orders Only [facility] CLINCONV Provider, MD Garrison [address] [place] [address] Social History Tobacco Use Types Packs/Day Years Used Date Smoking Tobacco: Never Assessed Sex and Gender Information Value Date Recorded Sex Assigned at Not on file 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 us Historical Provider Final Res ult documented in this encounter Visit Diagnoses Not on filedocumented in this encounter Additional Health Concerns Infection Onset Date Last Indicated Resolved Time COVID: Suspected 01/21/2022 01/21/2022 01/21/2022 2:34 PM CDT documented as of this encounter Care Teams Visiting Professor Relationship Specialty Start Date End Date Aldo Peter MD PCP - General Family Medicine 01/28/19 03/31/19 Aldo Peter MD PCP - General Family Medicine 04/01/19 Tierney Borges MD [address] [place] [address] Procurement Services Manager Cardiovascular Disease 07/21/19 Naeem Lala MD [address] [place] [address] Referring Physician Ophthalmology 05/27/23 documented as of this encounter
[2025-07-18 10:39] LABS: Cholesterol 120 mg/dL (0-200); HDL Direct 33 mg/dL; Triglycerides 182 mg/dL (<150)
[2025-07-18 11:15] LABS: Prostate Specific Antigen 1.3 ng/mL (< OR = 4.0)
== END 2025-07-18 09:35 | disposition home or self-care (01) ==
PROVIDERS: PCP Family Medicine; Visit Provider Physician Assistant Medical
DX: Z12.5 Encounter for screening for malignant neoplasm of prostate (principal); E11.9 Type 2 diabetes mellitus without complications; E78.5 Hyperlipidemia, unspecified; I10 Essential (primary) hypertension
CPT/HCPCS: 36415; 80061; 84153; G0103

== ENCOUNTER 2025-10-08 15:33 | Emergency (ER) | payer MEDICARE, OTHER, SELFPAY ==
--- OUTSIDE RECORDS SUMMARY | 2018-04-07 06:24 | XMS_ITS | Continuity of Care Document ---
Author Organization [facility] Address [address] [place] [address] Phone Care Team Providers Care Pot Fisher Name Role Phone Delaney Mckeon MD Unavailable Unavailable Allergies, Adverse Reactions, Alerts Substance Reaction Status Criticality POTASSIUM CHLORIDE Drug Fever Active No Inform ation Medications Medication Instructions Dosage Dose Quantity Effective Dates (start - stop) Status Indication Fill Status Comments metformin 500 mg tablet take 1 tablet by oral route once every day with morning meal 325 MG 1 tablet 8 - Active IMPAIRED FASTING GLUCOSE ONE TOUCH ULTRA TEST STRIPS CHECK GLUCOSE TWICE DAILY - FASTING AND 2 HOURS AFTER LARGEST MEAL AND NEEDED 325 MG 1 tablet 4 - Active One Touch Delica Lancets 33 gauge Use to test blood sugar 3-4 times/day 325 MG 1 tablet 3 - Active SIMVASTATIN 20 MG TABLET 1 QHS 325 MG 1 tablet 2 - Active Other and unspecified hyperlipide miaHYPERLIP IDEMIA NEC/NOS losartan 50 mg-hydrochlo rothiazide 12.5 mg tablet take 1 tablet by oral route every day 325 MG 1 tablet - Active aspirin 325 mg tablet take 1 tablet by oral route every day 325 MG 1 tablet - Active metoprolol tartrate 100 mg tablet take 1 tablet by oral route 2 times every day with meals 325 MG 1 tablet - Active Problems Condition Type Effective Dates (start - stop) Diagnosed Date Clinical Status Comments Allergic rhinitis Problem (finding) - Active (qualifier value) Gastroesophageal reflux disease without esophagitis Problem (finding) - Active (qualifier value) Health perception, health management pattern Problem (finding) - Active (qualifier value) Benign hypertension Problem (finding) - Active (qualifier value) Disorder of endocrine testis Problem (finding) - Active (qualifier value) Malignant tumor of stomach Problem (finding) - Active (qualifier value) Anxiety Problem (finding) - Active (qualifier value) Hyperlipidemia Problem (finding) - Active (qualifier value) Low back pain Problem (finding) - Active (qualifier value) Advance Directives Directive Yes / No Effective Date File Name No Information Encounters Encounter Description Practice Location Reason(s) For Visit Diagnoses Date Provider Encounter Disposition [email or web address], [address], [place], [place], [address] , tel: [phone] [place] No Information 8 Mike Baltazar. [address], [facility] [address], [place], [place], [address], . tel:[phone] [email or web address], [address], [place], [place], [address] , tel: [phone] [place] No Information 8 Mike Baltazar. [address], [address], [place], [place], [address], [place]. tel:[phone] [email or web address], [address], [place], [place], [address] , tel: [phone] [facility] Type 2 diabetes mellitus without complicationsE ssential (primary) hypertensionHy perlipidemia, unspecifiedGas troesophageal reflux disease without esophagitisMor bid obesity, unspecified obesity typeMicroalbum inuriaBenign positional vertigo, unspecified lateralityHist ory of adenomatous polyp of colonAbsent kidney, acquired 7 Mike Baltazar. [address], [facility] [address], [place], [place], [address], . tel:[phone] [email or web address], [address], [place], [place], [address] , tel: [phone] [facility] Suprapubic pressureType 2 diabetes mellitus without complicationsC hronic low back pain, unspecified back pain laterality, with sciatica presence unspecified 6 Anjel Frazier. [address], [address], [place], [place], [address], [place]. tel:[phone] [facility], [address], [place], [place], [address] , [place] tel: [phone] [facility] Hematuria 6 Anjel Meadowsa. [address], [facility], [place], [place], [address], [place]. tel:[phone] [place] [address], [address], [place], [place], [address] , [place] tel: [phone] [facility] Type 2 diabetes mellitus without complicationsE ssential (primary) hypertensionHy perlipidemia, unspecifiedGas troesophageal reflux disease without esophagitisAdu lt general medical examUrinary frequencyMorbi d obesity, unspecified obesity typeAcute prostatitis 6 Anjel Frazier. [address], [place] [address], [place], [place], [address], [place]. tel:[phone] [place] [address], [address], [place], [place], [address] , [place] tel: [phone] [facility] Other hyperlipidemia Essential (primary) hypertensionTy pe 2 diabetes mellitus without complicationsE ncounter for screening for malignant neoplasm of prostate 6 Mike Baltazar. [address], [facility], [place], [place], [address], [place]. tel:[phone] [facility], [address], [place], [place], [address] , [place] tel: [phone] [place] No Information 4 Anjel Frazier. [address], [facility], [place], [place], [address], [place]. tel:[phone] [facility], [address], [place], [place], [address] , [place] tel: [phone] [facility] Diabetes Mellitus Type 2, UncomplicatedH ypertension, BenignOther and unspecified hyperlipidemia 3 Anjel Frazier. [address] [facility] [address], [place], [place], [address], [place]. tel:[phone] [facility], [address], [place], [place], [address] , [place] tel: [phone] [facility] Other and unspecified hyperlipidemia Diabetes Mellitus Type 2, Uncomplicated Aug- 3 Mike Baltazar. [address], [address], [place], [place], [address], [place]. tel:[phone] [facility], [address], [place], [place], [address] , [place] tel: [phone] [place] No Information 3 [facility]. [address], [address], [place], [place], [address], [place]. tel:[phone] [facility], [address], [place], [place], [address] , [place] tel: [phone] [facility] Diabetes mellitus without mention of complication, type II or unspecified type, not stated as uncontrolled 3 Anjel Karin. [address], [address], [place], [place], [address], [place]. tel:[phone] [facility], [address], [place], [place], [address] , [place] tel: [phone] [place] No Information 3 Hobbs Karin. [address], [address], [place], [place], [address], [place]. tel:[phone] [facility], [address], [place], [place], [address] , [place] tel: [phone] [facility] Diabetes mellitus without mention of complication, type II or unspecified type, not stated as uncontrolledBe nign essential hypertensionDi abetes mellitus without mention of complication, type II or unspecified type, not stated as uncontrolledBe nign essential hypertension 3 Jairon Cosme. [address], [place], [place], [address]. tel:[phone] [facility], [address], [place], [place], [address] , [place] tel:[phone] [facility] Benign essential hypertensionOt her and unspecified hyperlipidemia Screening for malignant neoplasms of the prostateDM w/o complication type II, uncontrolled 3 Anjel Meadowsa. [address] [place] [address], [address], [place], [place], [address], [place]. tel:[phone] [facility], [address], [place], [place], [address] , [place] tel: [place] SPECIAL SCREENING FOR MALIGNANT NEOPLASMS, OTHER SITES 3 Yanni Villagomez. [address], [address], [place], [place], [address], [place]. tel:[phone] [facility], [address], [place], [place], [address] , [place] tel: [place] No Information 2 Mayank Guallpa. [address] [place] [address], [place] [address], [place], [place], [address], [place]. tel:[phone] [place] [address], [address], [place], [place], [address] , [place] tel:[phone] [facility] HYPERLIPIDEMIA NEC/NOSDMII WO CMP NT ST UNCNTR 1 Mayank Guallpa. [address] [place] [address], [address], [place], [place], [address], [place]. tel:[phone] [place] [address], [address], [place], [address] , [place] tel:[phone] [facility] LUMBAGO 1 Mike Baltazar. [address], [address], [place], [place], [address], [place]. tel:[phone] [facility], [address], [place], [place], [address] , [place] tel: [phone] [facility] HYPERTENSION NOS Oct-0 0 Mayank Guallpa. [address] [place] [address], [address], [place], [place], [address], [place]. tel:[phone] [place] [address], [address], [place], [place], [address] , [place] tel:[phone] [facility] ABDMNAL PAIN UNSPCF SITE 201 0 Mayank Guallpa. [address] [place] [address], [place] [address], [place], [place], [address], [place]. tel:[phone] [facility], [address], [place], [place], [address] , [place] tel: [phone] [facility] ANXIETY STATE NOSCHRONIC LIVER DIS NEC 5201 0 Mayank Guallpa. [address] [place] [address], [place] [address], [place], [place], [address], [place]. tel:[phone] [facility], [address], [place], [place], [address] , [place] tel: [phone] [facility] ABN LIVER FUNCTION STUDY 201 0 Mayank Guallpa. [address] [place] [address], [place] [address], [place], [place], [address], [place]. tel:[phone] [facility], [address], [place], [place], [address] , [place] tel: [phone] [facility] BENIGN HYPERTENSION 201 0 Sewing Dahlia. [address] [place] [address], [place] [address], [place], [place], [address], [place]. tel:[phone] [facility], [address], [place], [place], [address] , [place] tel: [phone] [facility] SCRN MALIG NEOP-PROSTATE 201 0 Mayank Guallpa. [address] [place] [address], [place] [address], [place], [place], [address], [place]. tel:[phone] [facility], [address], [place], [place], [address] , [place] tel: [phone] [facility] OBESITY NOS Sep-0 3-200 9 Mayank Guallpa. [address] [place] [address], [place] [address], [place], [place], [address], [place]. tel:[phone] [facility], [address], [place], [place], [address] , [place] tel: [phone] [facility] DMII WO CMP UNCNTRLD Nov-0 3-200 9 No Information [facility], [address], [place], [place], [address] , [place] tel:[phone] [facility] VACCIN FOR INFLUENZAND VAC STRPTCS PNEUMNI B 0 9 Mayank Guallpa. [address] [place] [address], [facility], [place], [place], [address], [place]. tel:[phone] [place] [address], [address], [place], [place], [address] , [place] tel: [phone] [facility] ALLERGIC RHINITIS NOS 9 Montooth Delaney. [address] [place] [address], [place] [address], [place], [place], [address], [place]. tel:[phone] [facility], [address], [place], [place], [address] , [place] tel: [phone] [facility] CUTANEOUS CANDIDIASIS 9 Foersterbartolo Rogers. [address] [place] [address], [place] [address], [place], [place], [address], [place]. tel:[phone] [place] [address], [address], [place], [place], [address] , [place] tel:[phone] [facility] NONSPECIF SKIN ERUPT NECDIAPER OR NAPKIN RASHPALPITATIO NS 8 Mayank Guallpa. [address] [place] [address], [place] [address], [place], [place], [address], [place]. tel:[phone] [place] [address], [address], [place], [place], [address] , [place] tel:[phone] [facility] OTH SPECFD VIRAL WARTSINGROWING NAIL 8 Mayank Guallpa. [address] [place] [address], [place] [address], [place], [place], [address], [place]. tel:[phone] [facility], [address], [place], [place], [address] , [place] tel: [phone] [facility] ACUTE SINUSITIS NOS 8 Anjel Frazier. [address] [place] [address], [address], [place], [place], [address], [place]. tel:[phone] [facility], [address], [place], [place], [address] , [place] tel: [phone] [facility] TESTICULAR HYPOFUNC NECABNORMAL GLUCOSE NEC Nov-2 7-200 7 Mayank Guallpa. [address], [address], [place], [place], [address], [place]. tel:[phone] [place] [address], [address], [place], [place], [address] , [place] tel: [phone] [facility] HEADACHEDIZZIN ESS AND GIDDINESS Aug-0 3-200 7 Mayank Guallpa. [address] [place] [address], [address], [place], [place], [address], [place]. tel:[phone] [place] [address], [address], [place], [place], [address] , [place] tel: [phone] [facility] IMPAIRED FASTING GLUCOSE Moses-1 8-200 7 Mayank Guallpa. [address] [place] [address], [address], [place], [place], [address], [place]. tel:[phone] [place] [address], [address], [place], [place], [address] , [place] tel: [phone] [facility] EDEMAINSECT BITE NEC Mar-3 0-200 7 Mayank Guallpa. [address] [place] [address], [address], [place], [place], [address], [place]. tel:[phone] [place] [address], [address], [place], [place], [address] , [place] tel: [phone] [facility] CELLULITIS OF LEG Mar-2 6-200 7 Mayank Guallpa. [address] [place] [address], [address], [place], [place], [address], [place]. tel:[phone] [place] [address], [address], [place], [place], [address] , [place] tel: [phone] [facility] No Information Dec-1 1-200 6 Mike Reneerey. [address] [place] [address], [address], [place], [place], [address], [place]. tel:[phone] [facility], [address], [place], [place], [address] , [place] tel: [phone] [facility] MALIG NEOPL STOMACH NOS 6 Mayank Guallpa. [address], [address], [place], [place], [address], [place]. tel:[phone] Family History Family Member Type Diagnosis Age At Onset No Information Immunizations Vaccine Date Status Comments 05856 - Pneumococcal_PPV23 administered S ource: Source Unspecified 45254 - Influenza administered Source: So urce Unspecified Payers Payer name Insurance type Identifiers Authorization(s) [facility] Member ID: Name: Coverage Status Eligibility Check on: [id number] ship to Subscriber: spousePayer Address: [address] [address], [place], [place], [address] Phone: [phone] Social History Type Description Quantity Date Captured Comments Sex Male Smoking Status No Information Current Gender Male (finding) Chief Complaint And Reason For Visit No Information History Of Present Illness Encounter Date Complaint History Of Prese nt Illness No Information Functional Status Date Description Comments No Information Instructions Date Instruction Additional Infor mation No Information Assessments Type Assessment Date No Information
--- OUTSIDE RECORDS SUMMARY | 2024-04-17 15:30 | XMS_ITS ---
Author Organization [facility] [employer] [facility] [employer] [place] ([address]) Address [address] [place] [address] Care Team Providers Care Tile Setter Apprentice Name Role Phone Rome BURNS, Aldo Primary Care Provider Unavaila ble GRACY-Gómez, Provider Unavailable Unavailab le REASON FOR VISIT Multum To Medispan Conversion Encounter Medications Medication SIG (Take, Route, Frequency, Duration) Notes Start Date End Date Status Omeprazole 40 MG ; Duration: 90 Active Metoprolol Succinate ER 100 MG ; Duration: 90 Active metFORMIN HCl ER 500 MG ; Duration: 90 Active Jardiance 25 MG ; Duration: 90 Active Simvastatin 20 MG ; Duration: 90 Active Azelastine HCl 137 MCG/SPRAY 2 spray(s) intranasally 2 times a day; Duration: 30 day(s) Active Cetirizine HCl 10 MG 1 tab(s) orally once a day 07/10/2022 Active amLODIPine Besylate 5 MG 1 tab(s) orally once a day; Duration: 30 day(s) 07/10/2022 Active Trulicity 1.5 MG/0.5ML ; Duration: 84 Active Vitamin D3 125 MCG 1 CAP(S) ORALLY ONCE A DAY; Duration: 30 DAY(S) *Please review and pick correct strength-formulatio n from Medispan options. If intended option is not shown, discontinue and re-order from Quick Search* Active Encounters Encounter Location Date Provider Diagnosis [facility] [address] [place] [id number] 04/17/2024 Provider Leeanne Chronic rhinitis J31.0 Assessments Encounter Date Diagnosis (ICD Code) Assessment Notes Treatment Notes Treatment Clinical Notes Section Notes 04/17/2024 Chronic rhinitis (ICD-10 - J31.0) Plan Of Treatment Medication Medication Name Sig Start Date Stop Date Notes Azelastine HCl 137 MCG/SPRAY 2 spray(s) intranasally 2 times a day; Duration: 30 day(s) Progress Notes * Andre PINONOB:1950 ([age] yo M)Acc No.[id number]:04/17/2024 Patient: Kosta TORRES Provider: Stephenie Magaña :1950 A ge:73 Y S ex:Male Date:04/17/2024 Address:[address] [place] [address], [facility] Pcp:Aldo Peter MD Subjective: * Chief Complaints: * 1 . [facility] * Medical History: * Medications: T aking Vitamin D3 125 MCG CAPSULE 1 CAP(S) ORALLY ONCE A DAY , Notes to Pharmacist: *Please review and pick correct strength[facility]formulation from [facility]. If intended option is not shown, discontinue and re-order from Quick Search*, Taking Trulicity 1.5 MG/0.5ML Solution Pen-injector , Taking amLODIPine Besylate 5 MG Tablet 1 tab(s) orally once a day , Taking Cetirizine HCl 10 MG Tablet 1 tab(s) orally once a day , Taking Jardiance 25 MG Tablet , Taking metFORMIN HCl ER 500 MG Tablet Extended Release 24 Hour , Taking Metoprolol Succinate ER 100 MG Tablet Extended Release 24 Hour , Taking Omeprazole 40 MG Capsule Delayed Release , Taking Simvastatin 20 MG Tablet Objective: * Vitals: Assessment: * Assessment: 1. C hronic rhinitis - J31.0 Plan: * Treatment: * Billing Information: * Visit Code: * Procedure Codes: * Electronic signature of Prov lisar JaneZ-Migration on 10/08/2025 at 04:08 PM EVENT DECORATOR Sign off status: Pending * Provider: Stephenie Magaña Date: 0 04/17/2024 Generated for Jayleen goode/Aga/Carlos on: 1 12/09/2024 04:08 PM EVENT DECORATOR
--- NOTE | ~2025-10-08 | XR_ITS ---
EXAMINATION: XR knee LT 3V, 10/08/2025 15:40 LIMO DRIVER HISTORY: Lt. knee injury, pain/ limited ROM COMPARISON: No comparisons available. Findings: No acute fracture or malalignment. No significant degenerative changes. Soft tissues unremarkable. Impression: No acute fracture or malalignment. Reviewed, dictated and finalized at location P. DRIVER Impression: No acute fracture or malalignment.
[2025-10-08 15:33] VITALS: BP 123/70; PULSE 76; RESP 16; TEMP 36.4; O2SAT 97
--- NOTE | 2025-10-08 15:53 | ED.LOWEXIN ---
HPI - Extremity Injury (Lower) General Chief Complaint: Extremity Injury, Lower Stated Complaint: left knee pain Time Seen by Provider: 10/08/25 15:36 Source: patient and family Mode of arrival: ambulatory Limitations: no limitations History of Present Illness HPI Narrative: This is a 75-year-old male with history of diabetes hypertension while walking earlier today and felt a pop in his left knee and had quite a bit of pain and discomfort, no other injuries noted has good range of motion although limited secondary to pain has a brisk pedal pulse on the left no calf pain no posterior knee tenderness with palpation. complaint: knee injury Onset (ago): hour(s) Injury: Left: knee (Tender with movement palpation) Type of Injury: other Place: street/outdoors Severity: mild Relieving factors: nothing Exacerbating factors: weight bearing, movement and palpation Context: other Associated symptoms: snap/pop sensation and swelling Related Data Home Medications ?Medication ?Instructions ?Recorded ?Confirmed ?Last Taken ?Type rosuvastatin 20 mg tablet (Crestor) 20 mg PO DAILY 06/02/23 08/02/25 Unknown History Allergies Allergy/AdvReac Type Severity Reaction Status Date / Time No Known Allergies Allergy Verified 10/08/25 15:34 Review of Systems Review of Systems: All systems reviewed & are unremarkable except as noted in HPI and below PMFSH Past Medical History Medical History BMI 32.0-32.9,adult BMI 33.0-33.9,adult COVID-19 BMI 35.0-35.9,adult BMI 34.0-34.9,adult Surgical History Surgical History H/O colonoscopy History of thumb surgery Family History Family History Mother Carcinoma of colon Alcohol abuse Tobacco abuse Father Malignant neoplasm of prostate Acute myocardial infarction Heart disease Tobacco abuse Alcohol abuse Sibling Acute myocardial infarction Alcohol abuse Tobacco abuse Sibling Acute myocardial infarction Alcohol abuse Cerebrovascular accident Tobacco abuse Other Hypertension Social History Social History Smoking status: Never smoker Second hand tobacco smoke exposure: Yes Alcohol intake: never Substance use: former Substance use type: does not use and marijuana Lack of Transportation: No Lack of Food: Never True Current Housing: I Have Housing Concerned About Future Housing: No Difficulty Paying Gas/Electric Bills: No Difficulty Paying for Meds: No Currently Unemployed: No Education: Master's Degree or Higher Difficulty w/ Childcare or Family Care: No Living arrangements: with family Occupation/Education: retired 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 Gender identity (if verbalized by the patient): Male Exam Const: General: healthy appearing and no acute distress Nutritional Appearance: well nourished and obese Orientation/consciousness: patient oriented x3 Limitations: no limitations Resp: Effort & Inspection: normal respiratory effort Auscultation: clear to auscultation bilaterally Cardio: Rate: regular rate Rhythm: regular rhythm Skin: General skin exam: normal color Rashes: no rashes Wounds: no wounds Neuro: General: patient oriented x3, moves all extremities, no meningeal signs and no focal motor deficits Extrem: Other: Right knee pain with movement and palpation Course Course Emergency Course: Medical decision-making Dionicio of: The patient was evaluated by myself in the emergency department. History obtained from the patient was independent historian physical exam performed and witnessed by tach. X-rays performed showed no acute fracture. The patient declined any pain medicine at this time. Repeat assessment: Patient doing well on repeat exam with no acute distress Symptoms stable since arrival to the emergency department Repeat vitals are stable Patient agrees with discussion and after shared she shared medical decision making and agrees with discharge All questions answered to patient's satisfaction Follow-up in 3 to 5 days with his primary care physician. Vital Signs Vital signs: Vital Signs Temperature 36.4 C 10/08/25 15:33 Pulse Rate 76 10/08/25 15:33 Respiratory Rate 16 10/08/25 15:33 Blood Pressure 123/70 10/08/25 15:33 Pulse Oximetry 97 10/08/25 15:33 Oxygen Delivery Room Air 10/08/25 15:33 Temperature 36.4 C 10/08/25 15:33 Pulse Rate 76 10/08/25 15:33 Respiratory Rate 16 10/08/25 15:33 Blood Pressure 123/70 10/08/25 15:33 Pulse Oximetry 97 10/08/25 15:33 Oxygen Delivery Room Air 10/08/25 15:33 MDM Differential Diagnosis Differential Diagnosis: Knee strain Critical Care Time Critical Care Time Critical Care Time: No Discharge Plan Discharge Clinical Impression: Strain of knee and leg, left Patient Disposition: Home Condition: Stable Instructions: Antibiotic Form, Knee Sprain (ED) Additional Instructions: Advised to continue Baljit wrap, can use Tylenol or Motrin follow up with primary in the next 3 to 5 days further evaluation treatment. Patient Language: Czech Prescriptions: No Action rosuvastatin [Crestor] 20 mg tablet 20 mg PO DAILY fluticasone propionate [Flonase Allergy Relief] 50 mcg/actuation spray,suspension 1 spray intranasal DAILY Qty: 18.2 1RF Rx Instructions: administer into each nostril aspirin [Adult Aspirin Regimen] 81 mg tablet,delayed release (DR/EC) 81 mg PO DAILY Qty: 90 0RF tizanidine 2 mg tablet 2 mg PO TID PRN (Reason: muscle spasticity) Qty: 30 0RF tramadol 50 mg tablet 50 mg PO Q6H PRN (Reason: pain) Qty: 30 0RF triamcinolone acetonide 0.5 % cream 1 applic topical BID Qty: 15 0RF (DME) [employer] Management Consulting Manager Misc See Rx Instructions .Route Qty: 1 0RF Rx Instructions: As directed for lancets (DME) lancets [FreeStyle Lancets] 28 gauge misc See Rx Instructions .Route Qty: 100 2RF Rx Instructions: Check glucose bid for diabetes nystatin-triamcinolone 100,000-0.1 unit/g-% cream 1 applic topical BID Qty: 30 0RF (DME) FreeStyle Shoaib 14 Day [place] Misc See Rx Instructions .Route Qty: 1 0RF Rx Instructions: As directed for diabetes (DME) FreeStyle Shoaib 14 Day Sensor Kit See Rx Instructions .Route Qty: 3 3RF Rx Instructions: As directed for diabetes hydroxyzine HCl 25 mg tablet 25 mg PO BID PRN (Reason: itching) Qty: 30 0RF omeprazole 40 mg capsule,delayed release(DR/EC) 40 mg PO DAILY Qty: 90 1RF amlodipine [Norvasc] 5 mg tablet 5 mg PO DAILY Qty: 90 1RF cetirizine 10 mg tablet See Rx Instructions .ROUTE .COMPLEX Qty: 90 1RF Dose Instruction: TAKE ONE-HALF TABLET BY MOUTH EVERY DAY Rx Instructions: TAKE ONE TABLET BY MOUTH EVERY DAY Jardiance 25 mg tablet 25 mg PO DAILY Qty: 90 1RF lisinopril 5 mg tablet 5 mg PO DAILY Qty: 90 1RF metoprolol succinate 100 mg tablet extended release 24 hr 100 mg PO BID Qty: 180 1RF Mounjaro 10 mg/0.5 mL pen injector 10 mg subcut WEEKLY Qty: 6 2RF diclofenac sodium [Voltaren Arthritis Pain] 1 % gel 4 g topical QID Qty: 100 0RF Rx Instructions: apply to single knee, ankle, foot; for foot includes sole/toes/top of foot Follow-up/Referrals: Aldo Peter MD [Primary Care Provider, Family Practice] Time of Disposition: 16:10
--- OUTSIDE RECORDS SUMMARY | 2025-10-08 16:08 | XMS_ITS | Encounter Summary ---
Author Organization [facility] Facility Care Team Providers Care Splicer Operator Name Role Phone Aldo Peter MD Primary Care Provider [phone] Aldo Peter MD Primary Care Provider [phone] Tierney Borges MD Unavailable [phone] Naeem Lala MD Unavailable [phone] Encounter Details Date Type Department Care Team (Latest Contact Info) Description 03/20/2011 Orders Only [facility] CLINCONV ProviderGarrison MD [address] [place] [address] Social History Tobacco Use Types Packs/Day Years Used Date Smoking Tobacco: Never Assessed Sex and Gender Information Value Date Recorded Sex Assigned at Not on file 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 Historical Provider [facility] Final Result documented in this encounter Visit Diagnoses Not on filedocumented in this encounter Additional Health Concerns Infection Onset Date Last Indicated Resolved Time COVID: Suspected 01/21/2022 01/21/2022 01/21/2022 2:34 PM CDT documented as of this encounter Care Teams Splicer Operator Relationship Specialty Start Date End Date Aldo Peter MD PCP - General Family Medicine 01/28/19 03/31/19 Aldo Peter MD PCP - General Family Medicine 04/01/19 Tierney Borges MD [address] [place] [address] Education Program Associate Cardiovascular Disease 07/21/19 Naeem Lala MD [address] [place] [address] Referring Physician Ophthalmology 05/27/23 documented as of this encounter
--- OUTSIDE RECORDS SUMMARY | 2025-10-08 16:08 | XMS_ITS | Clinical Summary ---
Author Organization [facility] 2 Address [address] [place] [address] Care Team Providers Care Pressroom Worker Name Role Phone Aldo Peter MD Primary Care Provider [phone] Tierney Borges MD Unavailable [phone] Naeem Lala MD Unavailable [phone] Allergies Active Allergy Reactions Criticality Noted Date Comments Potassium Chloride In 0.9%Nacl Palpitations High 07/2010 Medications cetirizine (ZyrTEC) 10 mg tablet Take 1 tablet (10 mg total) by mouth as needed for allergies 06/14/20 19 Active fluticasone propionate (FLONASE) 50 mcg/actuation nasal spray Administer 1 spray into each nostril as needed Active Jardiance 25 mg tablet daily 02/15/20 21 Active nystatin-triam cinolone cream nightly as needed 02/15/20 21 Active freestyle 28 gauge lancets 01/22/20 22 Active aspirin 81 mg enteric coated tablet Take 1 tablet (81 mg total) by mouth daily 30 tablet 11 03/05/20 23 Active blood-glucose sensor device Use for BG monitoring 2 each 05/27/20 23 Active azelastine (ASTELIN) 137 mcg (0.1 %) nasal spray every 12 hours Act christiano cholecalcifero l (VITAMIN D-3) 5,000 unit capsule daily Active tiZANidine (ZANAFLEX) 2 mg tablet Take 1 tablet (2 mg total) by mouth 01/17/20 23 Active omeprazole (PriLOSEC) 40 mg capsule 08/06/20 23 Active amLODIPine (NORVASC) 5 mg tablet Take 1 tablet (5 mg total) by mouth daily 90 tablet 2 10/07/20 23 Active lisinopriL (PRINIVIL,ZEST RIL) 5 mg tablet Be careful if taking OTCs.Take or use exactly as directed.Do not take if . 02/04/20 24 Active metoprolol XL (TOPROL-XL) 100 mg 24 hr tablet Take 1 tablet (100 mg total) by mouth 2 (two) times a day 07/21/20 24 Active Mounjaro 10 mg/0.5 mL pen injector 07/16/20 24 Active rosuvastatin (CRESTOR) 40 mg tablet Take 1 tablet (40 mg total) by mouth nightly 90 tablet 3 08/04/20 24 Active amoxicillin-cl avulanate (AUGMENTIN) 875-125 mg per tablet Take 1 tablet by mouth every 12 (twelve) hours for 10 days 11/15/19 25 Active cefuroxime (CEFTIN) 500 mg tablet Take 1 tablet (500 mg total) by mouth every 12 (twelve) hours 11/09/19 25 Active levoFLOXacin (LEVAQUIN) 500 mg tablet TAKE 1 TABLET BY MOUTH DAILY FOR 7 DAYS 12/06/19 25 Active polyethylene glycol (GoLYTELY) 236-22.74-6.74 -5.86 gram solution Drink half the gallon the night before the colonoscopy at 6 pm. Drink the other half the morning of the colonoscopy four (4) hours before you leave the house. 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 Letter sent to get copy of results. [...] infection. Assessment & Plan (09/16/2023 11:31 AM CAD PROGRAMMER): Chronic problem. A1c at goal/stable at 6.8%. Current medications: Jardiance 25mg daily Mounjaro 5mg weekly MA/Cr updated today. Verified that he uses mychart. Aware to check results/results letter in [email or web address]. Will contact by phone if needed. DM eye exam [address] Lala in [facility]. Letter sent to get copy of results. [...] mychart. Aware to check results/results letter in [email or web address]. Will contact by phone if needed. Assessment & Plan (09/16/2023 11:09 AM CAD PROGRAMMER): Chronic problem. Controlled on current Metoprolol XL 100mg daily, diltiazem CD 120mg daily. Hyperlipidemia associated with type 2 diabetes tyler olivia 09/16/2023 Assessment & Plan (07/29/2024 2:05 PM CDT): Chronic problem. Not at goal when checked 03/2023 Currently taking Rosuvastatin 20mg. Last lipid panel: 03/05/23 TXJ=082, OF=320. Will update labs. Verified that he uses mychart. Aware to check results/results letter in [employer]. Will contact by phone if needed. Assessment & Plan (09/16/2023 11:10 AM CAD PROGRAMMER): Chronic problem. Not at goal when checked 03/2023 Currently taking Rosuvastatin 20mg. Last lipid panel: 03/05/23 QET=813, VX=643. History of colon polyps 04/04/2021 Overview (04/04/2021): Added automatically from request for surgery [id number] Hyperglycemia 07/23/2019 Assessment & Plan (03/17/2023 12:38 [...] Chest pain 04/10/2018 07/23/2019 Esophagitis, unspecified 07/09/2016 Encounters Date Type Department Care Team Description 09/15/2025 Results Follow-Up [facility] Medicine Gastroenterology [address] 2nd [address] [place] [address] Patrick Ya MD Surgical pathology 09/15/2025 Orders Only [facility] Medicine Gastroenterology [address] [facility] [address] [place] [address] Jeanne Enrique RN History of colonic polyps (Primary Dx); Adenomatous polyp of descending colon; Adenomatous polyp of ascending colon; Adenomatous duodenal polyp 09/13/2025 8:00 AM CAD PROGRAMMER - 09/13/2025 8:45 AM CAD PROGRAMMER Surgery [facility] [address] [place] [id number] Patrick Ya MD COLON REMOVAL SNARE 09/13/2025 7:59 AM CAD PROGRAMMER Anesthesia Event [facility] [address] [place] [address] Andres Mclaughlin MD Leach, Shannin L., TOBI 09/13/2025 6:52 AM CAD PROGRAMMER - 09/13/2025 9:40 AM CAD PROGRAMMER Hospital Encounter [facility] [address] [place] [address] Patrick Ya MD Adenomatous duodenal polyp; Adenomatous polyp of ascending colon; Adenomatous polyp of descending colon Discharge Disposition: Discharge to home or self care 07/28/2025 Telephone [facility] Medicine Gastroenterology [address] [place] [address] Medical Office [address] [place] [address] Yasmine Guzman, RN GI Pre Procedure Assessment 07/28/2025 Orders Only [facility] Medicine Gastroenterology [address] [place] [address] [facility] 12th [place] [address] [place] [phone] Patrick Ya MD Adenomatous duodenal polyp; Adenomatous polyp of ascending colon; Adenomatous polyp of descending colon from Last 3 Months Surgical History Surgery Date Site/Laterality Comments UPPER GASTROINTESTINAL ENDOSCOPY COLONOSCOPY Medical History Medical History Date Comments HTN (hypertension) Palpitations diagnosed as PAC /PVC's that are benign Hypercholesterolemia Chest pain GERD (gastroesophageal reflux disease) Type 2 diabetes mellitus Colon polyp Adenomatous duodenal polyp Family History Medical History Relation Name Comments Colon cancer Mother Relation Name Status Comments Mother Social History Tobacco Use Types Packs/Day Years Used Date Smoking Tobacco: Never Smokeless Tobacco: Never Alcohol Use Standard Drinks/Week Comments Never 0 (1 standard drink = 0.6 oz pur e alcohol) AUDIT-C Answer Date Recorded Q1: How often do you have a drink containing alc ohol? Never 09/13/2025 Average Number of Drinks Not on file 025 Frequency of Binge Drinking Not on file 09/03 Personal Safety Answer Date Recorded Have you ever been in or are you currently in a harmful physical or emotional relationship or is someone making you feel afraid or unsafe? Denies 09/13/2025 Sex and Gender Information Value Date Recorded Sex Assigned at Not on file Legal Sex Male 8:54 PM CAD PROGRAMMER Gender Identity Not on file Sexual Orientation Not on file Last Filed Vital Signs Vital Sign Reading Time Taken Comments Blood Pressure 96/65 09/13/2025 9:04 AM CAD PROGRAMMER Pulse 78 09/13/2025 9:04 AM CAD PROGRAMMER Temperature 36.1 C (97 F) 09/13/2025 8:44 AM CAD PROGRAMMER Respiratory Rate 19 09/13/2025 9:04 AM CAD PROGRAMMER Oxygen Saturation 96% 09/13/2025 9:04 AM CAD PROGRAMMER Inhaled Oxygen Concentration - - Weight 102.1 kg (225 lb) 09/13/2025 7:28 AM CAD PROGRAMMER Height 180.3 cm (5' 11) 09/13/2025 7:28 AM CAD PROGRAMMER Body Mass Index 31.38 09/13/2025 7:28 AM CAD PROGRAMMER Plan of Treatment Health Maintenance Due Date Last Done Comments Depression Screening 1950 Hepatitis C Screening 1950 Dilated Eye Exam 1950 DTaP/Tdap/Td Vaccine (1 - Tdap) 1963 Hepatitis B Screening 1970 Zoster Vaccine (1 of 2) 2002 Well Visit 65+ 2017 Pneumococcal vaccine 65+ (2 of 2 - PPSV23, PCV20, or PCV21) 09/29/2018 08/04/2018 eGFR 05/01/2024 05/01/2023 Albumin Creatinine Ratio, Urine 09/16/2024 Foot Exam 09/16/2024 09/16/2023 Hemoglobin A1C 01/26/2025 07/29/2024, 09/03, 05/27/2023 Influenza Vaccine (#1) 2025 Lipid Panel 08/04/2025 08/04/2024, 03/05/2023 Fall Risk Assessment 09/13/2026 09/13/2025 Colon Cancer Screening-Colonoscopy 09/13/2035 09/13/2025, 02/06/2022, 07/01/2016 Colon Cancer Screening-CT Colonography Discontinued 09/13/2025, 02/06/2022, 07/01/2016 Colon Cancer Screening-DNA Stool Discontinued 09/13/2025, 02/06/2022, 07/01/2016 Colon Cancer Screening-FIT Discontinued 09/13, 02/06/2022, 07/01/2016 Colon Cancer Screening-Sigmoidoscopy Discontinue d 09/13/2025, 02/06/2022, 07/01/2016 Procedures Procedure Name Priority Date/Time Associated Diagnosis Comments SURGICAL PATHOLOGY Routine 09/13/2025 8:08 AM CAD PROGRAMMER Adenomatous duodenal polyp Adenomatous polyp of ascending colon Adenomatous polyp of descending colon ENDO ADD ON COLON BIOPSY 025 7:59 AM CAD PROGRAMMER Adenomatous duodenal polyp Adenomatous polyp of ascending colon Adenomatous polyp of descending colon ESOPHAGOGASTRODUODENOSCOPY REMOVAL SNARE 09/13/2025 7:59 AM CAD PROGRAMMER Adenomatous duodenal polyp Adenomatous polyp of ascending colon Adenomatous polyp of descending colon COLON REMOVAL SNARE 09/13/2025 7:59 AM CAD PROGRAMMER Adenomatous duodenal polyp Adenomatous polyp of ascending colon Adenomatous polyp of descending colon POCT GLUCOSE DEVICE Routine 09/13/2025 7:32 AM CAD PROGRAMMER EGD 09/13/2025 7:29 AM CAD PROGRAMMER COLONOSCOPY 09/13/2025 7:28 AM CAD PROGRAMMER POCT LIPID PANEL Routine 08/04/2024 2:54 PM CDT Hypercholestero lemia POCT HEMOGLOBIN A1C Routine 07/29/2024 2:08 PM CDT Type 2 diabetes mellitus with hyperglycemia, without long-term current use of insulin (HCC) ALBUMIN CREATININE RATIO, URINE Routine 09/16/2023 11:47 AM CAD PROGRAMMER Type 2 diabetes mellitus with hyperglycemia, without long-term current use of insulin (HCC) COMPREHENSIVE METABOLIC PANEL Routine 9:16 AM CDT from Last 3 Months or Most Recently Relevant to Health Maintenance Results * Surgical pathology (09/13/2025 8:08 AM CAD PROGRAMMER) Tissue (Polyp(s), colon/colorectal, esophageal, gastric) 09/13/2025 8:08 AM CAD PROGRAMMER Tissue specimen (specimen) (Duodenum, Biopsy) 09/13/2025 8:08 AM CAD PROGRAMMER Tissue specimen (specimen) (Gastric/Stomach biopsy) 09/13/2025 8:09 AM CAD PROGRAMMER Tissue specimen (specimen) (Polyp(s), colon/colorectal, esophageal, gastric) 09/13/2025 8:24 AM CAD PROGRAMMER Tissue specimen (specimen) (Polyp(s), colon/colorectal, esophageal, gastric) 09/13/2025 8:31 AM CAD PROGRAMMER Tissue specimen (specimen) (Polyp(s), colon/colorectal, esophageal, gastric) 09/13/2025 8:33 AM CAD PROGRAMMER Narrative PATHOLOGY [facility] - 09/15/2025 1:09 PM CAD PROGRAMMER EPIC results best viewed via link to PDF [facility] [place] [address] Note to Patients: This report may contain a detailed description of human tissue sent by a health care provider to the laboratory for pathologic evaluation. The content of this report is essential for diagnosis and may provide important critical findings. This information may be unfamiliar to patients to review without a medical professional present. It is advised that the patient review this report in the presence of a health care provider who can answer questions and explain the details. SURGICAL PATHOLOGY REPORT FINAL Patient Name: AMMON PINON Gender: Tyler : 1950 (Age: 74) Address: [address] [place] [id number] Hospital #: [id number] Taken:09/13/2025 Received:09/13/2025 Reported: 09/15/2025 Patient Type: [facility] Service: Gastro Location: Physician(s): Justyn Cisneros M.D. Diagnosis: A. Small bowel, duodenum, D2 polyp, polypectomy/biopsy - Small intestinal mucosa with no histopathologic abnormality B. Small bowel, duodenal bulb, biopsy - Small intestinal mucosa with foveolar metaplasia C. Stomach, antrum, biopsy - Antral mucosa with no histopathologic abnormality D. Large bowel, ascending colon, polyp, polypectomy/biopsy - Colonic mucosa with no histopathologic abnormality - No polyp identified E. Large bowel, transverse colon, polyp, polypectomy/biopsy - Tubular adenoma F. Large bowel, descending colon, polyp, polypectomy/biopsy - Colonic mucosa with no histopathologic abnormality - No polyp identified [facility]/09/15/2025 12:19 By this signature, I attest that the above diagnosis is based upon my personal examination of the slides(and/or other material indicated in the diagnosis). Samm Lomeli M.D. Report Electronically Reviewed and Signed Out By Samm Lomeli M.D. 09/15/2025 13:09:23 Pushpa Motley M.D. History: The patient is a 74-year-old man presenting with adenomatous duodenal polyp; adenomatous polyp of ascending colon; adenomatous polyp of descending colon. Operative procedure: Colonoscopy; upper endoscopy. Specimen(s) Received: A: D2 polyp B: Duodenal bulb C: Gastric antrum D: Ascending colon polyp, cold snare E: Transverse colon polyp, biopsy F: Descending colon polyp, cold snare Gross Description: Received in six formalin jars labeled with the patient's identifiers. A. Labeled D2 polyp and consists of two nixon and brown fragment(s) of soft tissue measuring 0.3 and 0.4 cm each in greatest dimension. Labeled A1. Jar 0. B. Labeled duodenal bulb and consists of three nixon and brown fragment(s) of soft tissue measuring 0.3-0.5 cm each in greatest dimension. Labeled B1. Jar 0. C. Labeled gastric antrum and consists of two nixon-brown fragment(s) of soft tissue measuring 0.2 and 0.5 cm each in greatest dimension. Labeled C1. Jar 0. D. Labeled ascending colon polyp and consists of three nixon fragment(s) of soft tissue measuring 0.2-0.3 cm each in greatest dimension. Labeled D1. Jar 0. E. Labeled transverse colon polyp and consists of a single nixon-brown fragment(s) of soft tissue measuring 0.4 cm in greatest dimension. Labeled E1. Jar 0. F. Labeled descending colon polyp and consists of multiple nixon and red polypoid fragment(s) of soft tissue measuring 2.3 x 0.8 x 0.3 cm in aggregate. Labeled F1. Jar 0. sxst/09/13/2025 11:45 PA(s): Shelbie Ibarra By this signature, I attest that the above diagnosis is based upon my personal examination of the slides(and/or other material). Addenda/Procedures The performance characteristics of some immunohistochemical stains, fluorescence in-situ hybridization tests and immunophenotyping by flow cytometry cited in this report (if any) were determined by the Surgical Pathology and Flow Cytometry Departments at [facility] as part of an ongoing auditor/quality program and in compliance with federally mandated regulations drawn from the Clinical Laboratory Improvement Act of 1988 (CLIA '88). Some of these tests rely on the use of analyte specific reagents and are subject to specific labeling requirements by the US Food and Drug Administration. Such diagnostic tests may only be performed in a facility that is certified by the Department of Health and Human Services as a high complexity laboratory under CLIA '88. The FDA has determined that such clearance or approval is not necessary. This test is used for clinical purposes. It should not be regarded as investigational or for research. Nevertheless, federal rules concerning the medical use of analyte specific reagents require that the following disclaimer be attached to the report: This test was developed and its performance characteristics determined by the Surgical Pathology and Flow Cytometry Departments of [facility]. It has not been cleared or approved by the U. S. Food and Drug Administration. IMAGES AND SCANNED DOCUMENTS, IF INCLUDED, ONLY VIEWABLE IN PDF VERSION OF REPORT Patrick Ya MD LAB PATHOLOGY ORDERABLES Fi nal Result [facility] 3rd Floor [place], [place] [phone] * POCT glucose (09/13/2025 7:32 AM CAD PROGRAMMER) Glucose, POC 100 70 - 199 mg/dL Blood 09/13/2025 7:32 AM CAD PROGRAMMER 09/13/2025 7:32 AM CAD PROGRAMMER Patrick Ya MD LAB POCT ORDERABLES - DEVIC E Final Result [facility] [address] [facility] [place] [address] * EGD (09/13/2025 7:29 AM CAD PROGRAMMER) Anatomical Region Laterality Modality Other Narrative Procedure Note Patrick Ya MD - 09/13/2025 7:29 AM CST [facility] Patient Name: Ammon Pinon Procedure Date: 09/13/2025 7:29 AM Date of : 1950 Admit Type: Outpatient Age: 74 Gender: Male Attending MD: Patrick Ya M.D., Room: [facility] ENDOSCOPY ROOM 2 Note Status: Finalized Procedure: Upper GI endoscopy Indications: Surveillance procedure; History of duodenal adenoma resected in 2005, EGD 02/2022 with 9 mm polypoidlesion s/p biopsies (gastric metaplasia with no adenoma) Referring MD: Aldo Peter M.D. Providers: Patrick Ya M.D., Kyree Rosario MD Comorbidities See the other procedure note for documentation of comorbidities Medicines: Monitored Anesthesia Care Complications: No immediate complications. Estimated Blood Loss: Estimated blood loss: none. Procedure: Pre-Anesthesia Assessment: - Prior to the procedure, a History and Physicalwas performed, and patient medications, allergies and sensitivities were reviewed. The patient'stolerance of previous anesthesia was reviewed. - Immediately prior to administration ofmedications, the patient was re-assessed for adequacy to receive sedatives. The benefits, risks, and alternatives to theprocedure and sedation were discussed and informed consentwas obtained. The scope was passed under direct vision. The [id number] endoscope was introduced through the mouth, and advanced to the second partof duodenum. The upper GI endoscopy was accomplished without difficulty. The patient tolerated the procedure well. Findings: The esophagus was normal. Patchy moderate inflammation characterized by erythema and friability was found in the gastric antrum. Biopsies were taken with a coldforceps for histology. Localized nodular mucosa was found in the duodenal bulb, withendoscopic appearance of gastric heterotopia. Biopsies were taken with a cold forceps for histology. A 4 mm area of polypoid area was noted in the second portion of the duodenum. Area was resected using cold forceps. Impression: - Normal esophagus. - Gastritis, characterized by erythema andfriability. Biopsied. - Nodular mucosa in the duodenal bulb withappearance of gastric heterotopia. Biopsied. - A small area of polypoid area was noted in the second portion of the duodenum. Area was resected using cold forceps. Recommendation: - The patient will be observed post-procedure,until all discharge criteria are met. - Observe patient's clinical course. - Continue present medications. - No ibuprofen, naproxen, or other non-steroidal anti-inflammatory drugs. - Await pathology results. - Resume previous diet. - Return to referring physician as previously scheduled. - In the unusual situation that you developabdominal, bleeding or other significant problems in the days following this procedure please call [phone] ask for my nurse, Jeanne Enrique. After hours and evenings please call [phone] and speak to theGI fellow business solutions consultant. Please tell the fellow that Dr. Ya did your procedure and that you were instructed to have the fellow call me or thephysician covering for me to discuss the management of your condition. If you have an urgent problem, please goto the nearest emergency room and have the ER doctorcall my office during the day or [facility] transfer ([phone]) center after hours and weekends to arrange admission or transfer to our facility. Attending Participation: I personally performed the entire procedure. Electronically signed by Patrick Ya MD Patrick Ya M.D. 09/13/2025 8:16:49 AM . Number of Addenda: 0 Note Initiated On: 09/13/2025 7:29 AM us Patrick Ya MD ENDOSCOPY PROCEDURES Final Result * Colonoscopy (09/13/2025 7:28 AM CAD PROGRAMMER) Anatomical Region Laterality Modality Other Narrative Procedure Note Patrick Ya MD - 09/13/2025 7:28 AM CST [facility] Patient Name: Ammon Pinon Procedure Date: 09/13/2025 7:28 AM Date of : 1950 Admit Type: Outpatient Age: 74 Gender: Male Attending MD: Patrick Ya M.D., Room: [facility] END[facility]COPY [facility] 2 Note Status: Finalized Procedure: Colonoscopy Indications: High risk colon cancer surveillance: Personalhistory of colonic polyps Referring MD: Aldo Peter M.D. Providers: Patrick Ya M.D., Kyree Rosario MD Comorbidities See the other procedure note for documentation of comorbidities Medicines: Monitored Anesthesia Care Complications: No immediate complications. Estimated blood loss: Minimal. Estimated Blood Loss: Estimated blood loss was minimal. Procedure: Pre-Anesthesia Assessment: - Prior to the procedure, a History and Physicalwas performed, and patient medications, allergies and sensitivities were reviewed. The patient'stolerance of previous anesthesia was reviewed. - Immediately prior to administration ofmedications, the patient was re-assessed for adequacy to receive sedatives. - The risks and benefits of the procedure and the sedation options and risks were discussed with the patient. All questions were answered and informed consent was obtained. The benefits, risks and alternatives of theprocedure and sedation were discussed and informed consentwas obtained. All questions were answered. Please referto the signed informed consent document in the medical record. The scope was passed under direct vision.The [id number] endoscope was introduced through the anus and advanced to the cecum, identified by appendiceal orifice and ileocecal valve. The colonoscopy was performed without difficulty. The patient tolerated the procedure well. The qualityof the bowel preparation was evaluated using the BBPS ([place] Bowel Preparation Scale) with scores of:Right Colon = 2 (minor amount of residual staining, small fragments of stool and/or opaque liquid, but mucosa seen well), Transverse Colon = 2 (minor amount of residual staining, small fragments of stool and/or opaque liquid, but mucosa seen well) and Left Colon= 2 (minor amount of residual staining, smallfragments of stool and/or opaque liquid, but mucosa seenwell). The total BBPS score equals 6. The bowelpreparation used was GoLYTELY via split dose instruction. The quality of the bowel preparation was adequate to identify polyps. Findings: Hemorrhoids were found on perianal exam. The cecum appeared normal. A 5 mm polyp was found in the ascending colon. The polyp was sessile. The polyp was removed with a cold snare. Resection and retrieval were complete. Two sessile polyps were found in the transverse colon. The polypswere 3 to 5 mm in size. These polyps were removed with a cold snare and cold biopsy forceps. Resection and retrieval were complete. Two sessile polyps were found in the descending colon. The polypswere 6 mm in size. These polyps were removed with a cold snare. Resectionand retrieval were complete. The rectum and sigmoid colon appeared normal. Non-bleeding internal hemorrhoids were found during retroflexion. The hemorrhoids were small. Impression: - Hemorrhoids found on perianal exam. - The cecum is normal. - One 5 mm polyp in the ascending colon, removedwith a cold snare. Resected and retrieved. - Two 3 to 5 mm polyps in the transverse colon, removed with a cold snare. Resected andretrieved. - Two 6 mm polyps in the descending colon, removed with a cold snare. Resected and retrieved. - The rectum and sigmoid colon are normal. - Non-bleeding internal hemorrhoids. Recommendation: - The patient will be observed post-procedure,until all discharge criteria are met. - Surveillance colonoscopy in 3 years pending pathology results. - Place referral to genetic counseling given >10 lifetime polyps. - Continue home medications. - Resume previous diet. - Follow up with referring physician as previously scheduled. - In the unusual situation that you developabdominal, bleeding or other significant problems in the days following this procedure please call [phone] ask for my nurse, Jeanne Enrique. After hours and evenings please call [phone] and speak to theGI fellow business solutions consultant. Please tell the fellow that Dr. Ya did your procedure and that you were instructed to have the fellow call me or thephysician covering for me to discuss the management of your condition. If you have an urgent problem, please goto the nearest emergency room and have the ER doctorcall my office during the day or [facility] transfer ([phone]) center after hours and weekends to arrange admission or transfer to our facility. Attending Participation: I personally performed the entire procedure. Electronically signed by Patrick Ya MD Patrick Ya M.D. 09/13/2025 9:25:34 AM . Number of Addenda: 0 Note Initiated On: 09/13/2025 7:28 AM Patrick Ya MD ENDOSCOPY PROCEDURES Final Result * POCT lipid panel (08/04/2024 2:54 PM [...] 7.0 4.0 - 5.6 % Blood 07/29/2024 2:0 8 PM CDT Emani Baumann NP POINT OF CARE TEST ORDERA BLES Final Result * (ABNORMAL) Albumin Creatinine Ratio, Urine (09/16/2023 11:47 AM CAD PROGRAMMER) Albumin Ur 156.2 mg/L [facility] Comment: Interpretive Data No reference range established. Current interpretive data was last revised 2019. Creatinine Ur 109.9 mg/dL [facility]YRUS Comment: Interpretive Data No reference range established. Current interpretive data was last revised 2019. Albumin Creatinine Ratio, Ur 142(H) 1 - 29 mg/g [facility] Urine 09/16/2023 11:4 7 AM CAD PROGRAMMER 09/17/2023 9:32 AM CAD PROGRAMMER us Emani Baumann [facility] URINE ORDERABLES Maryuri swartz Result [facility]ES [address] [place] [address] * (ABNORMAL) Comprehensive metabolic panel (05/01/2023 9:16 AM CDT) SCRIBED Sodium 140 137 - 145 mmol/L [...] Edit ed Result - Final EXTERNAL LAB from Last 3 Months or Most Recently Relevant to Health Maintenance Insurance MEDICARE FOR LIFE MEDICARE FOR LIFE MEDICARE FOR LIFE Advance Directives For more information, please contact: [phone] * Full Code (Latest Code Status on File) Date Activated Date Inactivated Comments 09/13/2025 7:21 AM 09/13/2025 1:40 PM * Full Code Date Activated Date Inactivated Comments 02/06/2022 8:31 AM 02/06/2022 3:08 PM Care Teams Pressroom Worker Relationship Specialty Start Date End Date Aldo Peter MD PCP - General Family Medicine 04/01/19 Tierney Borges MD [address] [place] [address] Fire Crew Specialist Cardiovascular Disease 07/21/19 Naeem Lala MD [address] [place] [address] Referring Physician Ophthalmology 05/27/23
--- OUTSIDE RECORDS SUMMARY | 2025-10-08 16:08 | XMS_ITS | Encounter Summary ---
Author Organization [facility] Facility Care Team Providers Care Pear Picker Name Role Phone Aldo Peter MD Primary Care Provider [phone] Aldo Peter MD Primary Care Provider [phone] Tierney Borges MD Unavailable [phone] Naeem Lala MD Unavailable [phone] Encounter Details Date Type Department Care Team (Latest Contact Info) Description 06/02/2007 Orders Only [facility] CLINCONV ProviderGarrison MD [address] [place] [address] Social History Tobacco Use Types Packs/Day Years Used Date Smoking Tobacco: Never Assessed Sex and Gender Information Value Date Recorded Sex Assigned at Not on file 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 Historical Provider [facility] CLEMENICA JONES Final Result documented in this encounter Visit Diagnoses Not on filedocumented in this encounter Additional Health Concerns Infection Onset Date Last Indicated Resolved Time COVID: Suspected 01/21/2022 01/21/2022 01/21/2022 2:34 PM CDT documented as of this encounter Care Teams Pear Picker Relationship Specialty Start Date End Date Aldo Peter MD PCP - General Family Medicine 01/28/19 03/31/19 Aldo Peter MD PCP - General Family Medicine 04/01/19 Tierney Borges MD [address] [place] [address] Wet Cleaner Machine Cardiovascular Disease 07/21/19 Naeem Lala MD [address] [place] [address] Referring Physician Ophthalmology 05/27/23 documented as of this encounter
--- OUTSIDE RECORDS SUMMARY | 2025-10-08 16:09 | XMS_ITS | Encounter Summary ---
Author Organization [facility] Facility Care Team Providers Care Car Retarder Operator Name Role Phone Aldo Peter MD Primary Care Provider [phone] Aldo Peter MD Primary Care Provider [phone] Tierney Borges MD Unavailable [phone] Naeem Lala MD Unavailable [phone] Encounter Details Date Type Department Care Team (Latest Contact Info) Description 03/10/2013 Orders Only [facility] CLINCONV Provider, MD Garrison [address] [place] [address] Social History Tobacco Use Types Packs/Day Years Used Date Smoking Tobacco: Never Assessed Sex and Gender Information Value Date Recorded Sex Assigned at Not on file 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
--- OUTSIDE RECORDS SUMMARY | 2025-10-08 16:09 | XMS_ITS | Encounter Summary ---
Author Organization [facility] Facility Care Team Providers Care Activity Coordinator Name Role Phone Aldo Peter MD Primary Care Provider [phone] Aldo Peter MD Primary Care Provider [phone] Tierney Borges MD Unavailable [phone] Naeem Lala MD Unavailable [phone] Encounter Details Date Type Department Care Team (Latest Contact Info) Description 05/13/2017 Orders Only [facility] CLINCONV ProviderGarrison MD [address] [place] [address] Social History Tobacco Use Types Packs/Day Years Used Date Smoking Tobacco: Never Assessed Sex and Gender Information Value Date Recorded Sex Assigned at Not on file 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
--- OUTSIDE RECORDS SUMMARY | 2025-10-08 16:09 | XMS_ITS | Encounter Summary ---
Author Organization [facility] Facility Care Team Providers Care Data Keyer Name Role Phone Aldo Peter MD Primary Care Provider [phone] Aldo Peter MD Primary Care Provider [phone] Tierney Borges MD Unavailable [phone] Naeem Lala MD Unavailable [phone] Encounter Details Date Type Department Care Team (Latest Contact Info) Description 03/06/2017 Orders Only [facility] CLINCONV ProviderGarrison MD [address] [place] [address] Social History Tobacco Use Types Packs/Day Years Used Date Smoking Tobacco: Never Assessed Sex and Gender Information Value Date Recorded Sex Assigned at Not on file 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
[2025-10-08 16:17] VITALS: BP 123/70; PULSE 76; RESP 16; TEMP 36.4; O2SAT 97
== END 2025-10-08 16:17 | disposition home or self-care (01) ==
PROVIDERS: Emergency Provider Emergency Medicine; PCP Family Medicine
DX: S86.812A Strain of other muscle(s) and tendon(s) at lower leg level, left leg, initial encounter (principal); S86.912A Strain of unspecified muscle(s) and tendon(s) at lower leg level, left leg, initial encounter; E11.9 Type 2 diabetes mellitus without complications; I10 Essential (primary) hypertension; X58.XXXA Exposure to other specified factors, initial encounter
CPT/HCPCS: 73562; 99283